=== PATIENT | male | born 1955 | race African-American/Black ===

== ENCOUNTER 2019-08-24 23:28 | Inpatient (IN) | payer OTHER ==
[~2019-08-24] VITALS: Ht 190.5 cm; Wt 129.8 kg
[2019-08-24] MEDS ORDERED: Solu-MEDROL 125mg Inj IVP ONE (23:30)
[2019-08-24] MEDS ORDERED: Ipratropium 0.02% Inh Soln 2.5ml UD HHN ONE (23:30)
[2019-08-24] MEDS ORDERED: Albuterol ud Inhalation HHN ONE (23:30)
--- NOTE | 2019-08-24 23:34 | Emergency Room Report ---
History of Present Illness General Chief Complaint: Dyspnea/Respdistress Source: Patient, Medical Record, EMS Present Illness HPI 63-year-old male with a history of high blood pressure, asthma/COPD who continues to smoke. He presents with chief complaint of shortness of breath. Onset this morning. Worsened tonight. Has coughing and wheezing. Coughing is productive of yellow sputum. He was just discharged from [facility] 2 weeks ago for COPD and pneumonia. EMS said he was wheezing and put him on breathing treatment and oxygen and brought him here. Patient denies any chest pain. Worse exertion. Worse with lying flat. Better with sitting up and rest. No nausea no vomiting. No diarrhea. Allergies: Coded Allergies: PENICILLINS (Unverified Allergy, Unknown, 08/24/19) Patient History Past Medical History: see triage record, old chart reviewed, DM, HTN, asthma, COPD Past Surgical History: other Pertinent Family History: none Social History: Reports: smoking Immunizations: other Reviewed Nursing Documentation: PMH: Agreed; PSxH: Agreed Review of Systems Eye: Denies: eye pain, blurred vision ENT: Denies: ear pain, nose congestion, throat swelling Respiratory: Reports: cough, shortness of breath, wheezing Cardiovascular: Denies: chest pain, palpitations Gastrointestinal: Denies: abdominal pain, diarrhea, nausea, vomiting Musculoskeletal: Denies: back pain, joint pain Skin: Denies: rash Neurological: Denies: headache, numbness Endocrine: Denies: increased thirst, increased urine Hematologic/Lymphatic: Denies: easy bruising All Other Systems: negative except mentioned in HPI Physical Exam Sp02 EP Interpretation: reviewed, abnormal General Appearance: well appearing, alert, moderate distress Head: normocephalic, atraumatic Eyes: bilateral eye PERRL, bilateral eye EOMI ENT: hearing grossly normal, normal pharynx Neck: full range of motion, supple, no meningismus Respiratory: chest non-tender, respiratory distress, accessory muscle use, wheezing Cardiovascular #1: regular rate, rhythm, no murmur Gastrointestinal: normal bowel sounds, non tender, no mass, no organomegaly, no bruit, non-distended Musculoskeletal: back normal, gait/station normal, normal range of motion Psychiatric: mood/affect normal Medical Decision Making Diagnostic Impression: Primary Impression: Status asthmaticus with COPD (chronic obstructive pulmonary disease) Additional Impressions: Cocaine abuse PCP (phencyclidine) abuse ER Course Patient presents with respiratory distress. Probably secondary to substance abuse. He said he smoked crack cocaine today. Initially I put him on BiPAP and was able to wean him off. He still wheezing but much more comfortable. Chest x-ray is unremarkable. No evidence of ACS, PE, dissection to name a few. Patient received nebulizer treatment, steroid and magnesium for his wheezing. Will admit versus transfer for further evaluation. Pt will be placed in Tele obsv here. I contacted Dr. Nickerson for admission. EKG Diagnostic Results Rate: normal Rhythm: NSR ST Segments: no acute changes Rhythm Strip Diag. Results EP Interpretation: yes Rate: 95 Rhythm: NSR, no PVC's, no ectopy Chest X-Ray Diagnostic Results Chest X-Ray Diagnostic Results : Chest X-Ray Ordered: Yes # of Views/Limited/Complete: 1 View Indication: Shortness of Breath EP Interpretation: Yes Interpretation: no consolidation, no effusion, no pneumothorax, no acute cardiopulmonary disease Impression: No acute disease Electronically Signed by: Zachariah Harmon MD Status: improved Disposition: PLACE IN OBSERVATION Condition: Serious Zachariah Harmon MD Aug 24, 2019 23:34
--- NOTE | 2019-08-24 23:45 | NUR ---
ED Nurse Note: Recieved pt DEBORAH from home, here with c/o sob with asthma, pt has ran out of nebulizer meds about a week ago, states inhaler not working, pt noted with sob at rest and on exertion, has mild headache at 5/10, no cp, denies fevers or any other discomforts, pt able to speak, not complete sentences due to sob, pt gowned and palced on cardiac monitoring, iv line palced and labs drawn, will resume care as ordered and closely monitor.
[2019-08-24 23:50] LABS: BASOPHILS % (AUTO) 3.3 % (0.0-2.0); EOSINOPHILS % (AUTO) 3.9 % (0.0-3.0); HEMATOCRIT 41.5 % (42.0-52.0); HEMOGLOBIN 13.7 G/DL (14.2-18.0); MEAN CORPUSCULAR VOLUME 100 FL (80-99); MONOCYTES % (AUTO) 9.5 % (1.0-10.0); NEUTROPHILS % (AUTO) 66.3 % (45.0-75.0); PLATELET COUNT 190 K/UL (150-450); RED BLOOD COUNT 4.15 M/UL (4.70-6.10); RED CELL DISTRIBUTION WIDTH 12.4 % (11.6-14.8); WHITE BLOOD COUNT 7.7 K/UL (4.8-10.8)
--- NOTE | 2019-08-25 | NUR ---
ED Nurse Note: Pt placed on BIPAP, O2 jtx=226%, will continue to closely monitor.
[2019-08-25 00:16] LABS: ANION GAP 11 mmol/L (5-15); BLOOD UREA NITROGEN 12 mg/dL (7-18); CARBON DIOXIDE 26 MMOL/L (21-32); CHLORIDE 105 MMOL/L (98-107); CREATININE 1.4 MG/DL (0.55-1.30); POTASSIUM 4.2 MMOL/L (3.5-5.1); SODIUM 142 MMOL/L (136-145)
[2019-08-25 00:29] LABS: ALANINE AMINOTRANSFERASE 44 U/L (12-78); ALBUMIN 3.5 G/DL (3.4-5.0); ALBUMIN/GLOBULIN RATIO 0.8 (1.0-2.7); ALKALINE PHOSPHATASE 94 U/L (46-116); ASPARTATE AMINO TRANSFERASE 30 U/L (15-37); BILIRUBIN,TOTAL 0.6 MG/DL (0.2-1.0); CREATINE KINASE 442 U/L (26-308)
[2019-08-25 01:00] VITALS: BP 143/89
[2019-08-25] MEDS ORDERED: Albuterol ud Inhalation HHN ONE (01:00)
[2019-08-25 01:13] LABS: APPEARANCE,URINE CLEAR; BILIRUBIN, URINE NEGATIVE (NEGATIVE); COLOR,URINE PALE YELLOW; GLUCOSE, URINE (UA) NEGATIVE (NEGATIVE); KETONES,URINE NEGATIVE (NEGATIVE); LEUKOCYTE ESTERASE ,URINE NEGATIVE (NEGATIVE); NITRITE,URINE NEGATIVE (NEGATIVE); PH,URINE 6 (4.5-8.0); PROTEIN,URINE NEGATIVE (NEGATIVE); UROBILINOGEN,URINE NORMAL MG/DL (0.0-1.0)
[2019-08-25 02:15] VITALS: BP 116/61
[2019-08-25] MEDS ORDERED: Acetaminophen 650 MG SUPP RECTAL PRN (02:30)
--- NOTE | 2019-08-25 03:11 | NUR ---
ED Nurse Note: report given to QAMAR Santana from Tele.
[2019-08-25] MEDS: Albuterol ud Inhalation HHN PRN (05:17)
[2019-08-25] MEDS ORDERED: Albuterol ud Inhalation HHN SCH (07:00)
--- NOTE | 2019-08-25 07:34 | NUR ---
NURSE NOTES: Received report from Mahesh/RN, Patient is awake and alert, A/O x4. Breathing unlabored and even, no acute distress/SOB noted. Able to make needs known. IV site patent, no bleeding or infiltration noted. Sera pain at this time. Encouraged to use call light when needed. Bed in low position and locked, Bed alarm engaged, Side-rails up x2. Call light within reach. Will continue plan of care.
[2019-08-25 08:00] VITALS: BP 126/81
[2019-08-25] MEDS ORDERED: Morphine Sulfate 2mg/ml Inj(IV/IM USE ONLY) IVP PRN (09:45)
[2019-08-25] MEDS ORDERED: Promethazine/Codeine 5ml UD ORAL PRN (09:45)
[2019-08-25] MEDS ORDERED: Nitroglycerin Subl 0.4mg tab SL PRN (09:45)
[2019-08-25] MEDS ORDERED: LORazepam Inj 2mg/ml 1ml IV PRN (09:45)
[2019-08-25] MEDS: Theophylline ER 100mg ORAL SCH ×3 (11:00→21:00)
[2019-08-25] MEDS: Solu-MEDROL 125mg Inj IV SCH ×3 (11:08→22:02)
[2019-08-25] MEDS: Albuterol/Ipratropium 3ml neb HHN PRN ×5 (11:10→23:09)
--- NOTE | 2019-08-25 11:15 | NUR ---
Social Work This Sw received notification regarding substance abuse. This Sw met with patient who remains alert/oriented x4, making his own decisions. Patient lives alone and has a his ex-girlfriend, Chayo Mari ([phone]) who is his payee, decision maker, as needed. Patient plans to discharge to home with Chayo to provide transportation, as needed. Patient admitted to using Cocaine for the past thirty years. This Sw discussed the health risks involved, while patient expressing understanding and stating "I will try to quit." Substance abuse resources provided. Patient stating he plans to follow up with a Psychiatrist, due to his history of PTSD (Post Traumatic Stress Disorder). Patient was taking medication, but will need to reinstate. This Sw also provided a list of Mental Health clinics. Emotional support provided to patient, while patient appears to be coping overall, does not verbalize any depression, anxiety or suicidal ideations. Patient remains independent overall with ADLs, ambulation and does not require any DME at this time.
--- NOTE | 2019-08-25 11:40 | NUR ---
RESPIRATORY NOTE: Breathing Tx Duoneb prn given for SOB. Pt has Bipap Noc/ prn order per Dr. Denis. Pt wants to be on Bipap due to SOB. The room doesn't red outlet. Asking QAMAR Enriquez and AAKASH Albarran to move pt to different room with the red outlet. No room available yet. Placed pt on Bipap with the current settings: 12/5- 30% FiO2. Foam tapes applied on cheeks, chin and nose bridge to prevent redness. No redness or skin breakdown noted. Alarms are set and audible, ambu bag is at bedside. Will continue to monitor pt in the mean time, and follow up about the room/ Addendum: 08/25/19 at 1223 by Jada N Weiss RT QAMAR Enriquez. Addendum: 08/25/19 at 1346 by Martintran N Weiss RT EtCO2 monitor is on with Bipap, PCO2 is low 20mmHg. Alarm for EtCO2 is set at 35-45mmHg.
--- NOTE | 2019-08-25 11:51 | Consultation ---
History of Present Illness General Date patient seen: Aug 25, 2019 Chief Complaint: Dyspnea/Respdistress Present Illness HPI 63-year-old male with a history of HTN, DM , asthma/COPD presented to ER with chief complaint of shortness of breath, coughing and wheezing. Coughing is productive of yellow sputum. He was just discharged from [facility] weeks ago for COPD and pneumonia. He is admitted for further treatment. Allergies: Coded Allergies: PENICILLINS (Unverified Allergy, Unknown, 08/24/19) Patient History Healthcare decision maker Resuscitation status Full Code Advanced Directive on File Past Medical/Surgical History Past Medical/Surgical History: (1) COPD (chronic obstructive pulmonary disease) (2) Nicotine addiction (3) Active smoker (4) Cocaine abuse (5) PCP (phencyclidine) abuse Review of Systems All Other Systems: negative except mentioned in HPI Physical Exam General Appearance: WD/WN Lines, tubes and drains: peripheral HEENT: normocephalic Neck: non-tender, normal alignment Respiratory/Chest: chest wall non-tender, lungs clear Cardiovascular/Chest: normal peripheral pulses, normal rate Abdomen: normal bowel sounds, non tender Genitourinary/Rectal: normal genital exam Neurologic: galley cook II-XII grossly normal Last 24 Hour Vital Signs Date Time Temp Pulse Resp B/P (MAP) Pulse Ox O2 Delivery O2 Flow Rate FiO2 08/25/19 11:20 95 22 99 Nasal Cannula 2.0 96 24 95 08/25/19 09:00 Nasal Cannula 2.0 08/25/19 08:00 94 08/25/19 08:00 97.9 94 18 126/81 (96) 96 08/25/19 06:53 80 19 100 Nasal Cannula 2.0 92 21 100 08/25/19 05:18 94 20 99 Nasal Cannula 2.0 90 20 98 08/25/19 04:19 Nasal Cannula 2.0 08/25/19 04:04 96 08/25/19 03:40 98.4 81 18 119/64 100 Room Air 08/25/19 03:30 2.0 28 08/25/19 02:15 98.6 90 18 116/61 99 Room Air 6.0 21 08/25/19 01:00 98.6 88 18 143/89 99 Room Air 6.0 21 08/25/19 00:58 96 18 99 Room Air 08/25/19 00:25 6.0 30 08/24/19 23:45 93 14 6.0 30 08/24/19 23:45 93 23 100 Facial 30 93 14 100 Bi-Pap 30 08/24/19 23:44 93 23 100 Bi-Pap 30 08/24/19 23:29 98.6 100 26 115/91 (99) 100 Nasal Cannula 6.0 Intake and Output 08/24/19 08/25/19 19:00 07:00 Output Total 300 ml Balance -300 ml Output Urine Total 300 ml # Voids 1 Laboratory Tests Test 08/24/19 23:30 08/25/19 01:00 White Blood Count 7.7 K/UL (4.8-10.8) Red Blood Count 4.15 M/UL (4.70-6.10) L Hemoglobin 13.7 G/DL (14.2-18.0) L Hematocrit 41.5 % (42.0-52.0) L Mean Corpuscular Volume 100 FL (80-99) H Mean Corpuscular Hemoglobin 32.9 PG (27.0-31.0) H Mean Corpuscular Hemoglobin Concent 32.9 G/DL (32.0-36.0) Red Cell Distribution Width 12.4 % (11.6-14.8) Platelet Count 190 K/UL (150-450) Mean Platelet Volume 6.7 FL (6.5-10.1) Neutrophils (%) (Auto) 66.3 % (45.0-75.0) Lymphocytes (%) (Auto) 17.0 % (20.0-45.0) L Monocytes (%) (Auto) 9.5 % (1.0-10.0) Eosinophils (%) (Auto) 3.9 % (0.0-3.0) H Basophils (%) (Auto) 3.3 % (0.0-2.0) H Sodium Level 142 MMOL/L (136-145) Potassium Level 4.2 MMOL/L (3.5-5.1) Chloride Level 105 MMOL/L (98-107) Carbon Dioxide Level 26 MMOL/L (21-32) Anion Gap 11 mmol/L (5-15) Blood Urea Nitrogen 12 mg/dL (7-18) Creatinine 1.4 MG/DL (0.55-1.30) H Estimat Glomerular Filtration Rate > 60 mL/min (>60) Glucose Level 113 MG/DL (74-106) H Calcium Level 9.0 MG/DL (8.5-10.1) Total Bilirubin 0.6 MG/DL (0.2-1.0) Aspartate Amino Transf (AST/SGOT) 30 U/L (15-37) Alanine Aminotransferase (ALT/SGPT) 44 U/L (12-78) Alkaline Phosphatase 94 U/L (46-116) Total Creatine Kinase 442 U/L (26-308) H Creatine Kinase MB 5.0 NG/ML (0.0-3.6) H Creatine Kinase MB Relative Index 1.1 Troponin I 0.000 ng/mL (0.000-0.056) Pro-B-Type Natriuretic Peptide 153 pg/mL (0-125) H Total Protein 8.0 G/DL (6.4-8.2) Albumin 3.5 G/DL (3.4-5.0) Globulin 4.5 g/dL Albumin/Globulin Ratio 0.8 (1.0-2.7) L Urine Color Pale yellow Urine Appearance Clear Urine pH 6 (4.5-8.0) Urine Specific Mandan 1.015 (1.005-1.035) Urine Protein Negative (NEGATIVE) Urine Glucose (UA) Negative (NEGATIVE) Urine Ketones Negative (NEGATIVE) Urine Blood Negative (NEGATIVE) Urine Nitrite Negative (NEGATIVE) Urine Bilirubin Negative (NEGATIVE) Urine Urobilinogen Normal MG/DL (0.0-1.0) Urine Leukocyte Esterase Negative (NEGATIVE) Urine Opiates Screen Negative (NEGATIVE) Urine Barbiturates Screen Negative (NEGATIVE) Phencyclidine (PCP) Screen Positive (NEGATIVE) H Urine Amphetamines Screen Negative (NEGATIVE) Urine Benzodiazepines Screen Negative (NEGATIVE) Urine Cocaine Screen Positive (NEGATIVE) H Urine Marijuana (THC) Screen Negative (NEGATIVE) Height (Feet): 6 Height (Inches): 3.00 Weight (Pounds): 300 Medications Current Medications Medications (Trade) Dose Ordered Sig/Norbert Route PRN Reason Start Time Stop Time Status Last Admin Dose Admin Albuterol Sulfate (Proventil) 2.5 mg Q4HR PRN HHN wheezing 08/25/19 02:30 08/30/19 02:29 08/25/19 05:17 Albuterol/ Ipratropium (Albuterol/ Ipratropium) 3 ml Q4H PRN HHN dyspnea 08/25/19 09:45 08/30/19 09:44 08/25/19 11:10 Dextrose (Dextrose 50%) 25 ml Q30M PRN IV Hypoglycemia 08/25/19 09:45 09/24/19 09:44 Dextrose (Dextrose 50%) 50 ml Q30M PRN IV Hypoglycemia 08/25/19 09:45 09/24/19 09:44 Heparin Sodium (Porcine) (Heparin 5000 units/ml) 5,000 units EVERY 12 HOURS SUBQ 08/25/19 21:00 09/24/19 20:59 Lorazepam (Ativan 2mg/ml 1ml) 0.5 mg Q4H PRN IV For Anxiety 08/25/19 09:45 09/01/19 09:44 Methylprednisolone Sodium Succinate (Solu-MEDROL) 60 mg Q6H IV 08/25/19 10:00 09/24/19 09:59 08/25/19 11:08 Morphine Sulfate (Morphine Sulfate) 2 mg Q4H PRN IVP severe pain 7-10 08/25/19 09:45 09/01/19 09:44 Nitroglycerin (Ntg) 0.4 mg Q5M X 3 DOSES PRN SL Prn Chest Pain 08/25/19 09:45 09/24/19 09:44 Ondansetron HCl (Zofran) 4 mg Q6H PRN IVP Nausea & Vomiting 08/25/19 09:45 09/24/19 09:44 Promethazine HCl/ Codeine (Phenergan with Codeine) 5 ml Q6H PRN ORAL cough 08/25/19 09:45 09/24/19 09:44 Temazepam (Restoril) 15 mg HSPRN PRN ORAL Insomnia 08/25/19 09:45 09/01/19 09:44 Theophylline (Sudhir-Dur) 100 mg EVERY 12 HOURS ORAL 08/25/19 10:00 09/24/19 09:59 Assessment/Plan Problem List: (1) Acute bronchitis ICD Codes: J20.9 - Acute bronchitis, unspecified SNOMED: 05427587 (2) COPD (chronic obstructive pulmonary disease) ICD Codes: J44.9 - Chronic obstructive pulmonary disease, unspecified SNOMED: 27374782 (3) Nicotine addiction ICD Codes: F17.200 - Nicotine dependence, unspecified, uncomplicated SNOMED: 21189298 (4) Active smoker ICD Codes: F17.200 - Nicotine dependence, unspecified, uncomplicated SNOMED: 59491442 (5) PCP (phencyclidine) abuse ICD Codes: F16.10 - Hallucinogen abuse, uncomplicated SNOMED: 2200505 (6) Cocaine abuse ICD Codes: F14.10 - Cocaine abuse, uncomplicated SNOMED: 32116267, 808687170 Assessment/Plan: check sputum iv abx iv steroids check electrolytes respiratory treatment. Jayro Denis MD Aug 25, 2019 11:51
[2019-08-25 12:00] VITALS: BP 143/90
--- NOTE | 2019-08-25 12:08 | Diagnostic Imaging Report ---
Indication: Shortness of breath Technique: One view of the chest Comparison: 09/26/2010 Findings: The heart is upper limits normal in size. The lungs and pleural spaces are clear. There is no significant interim change Impression: Negative
--- NOTE | 2019-08-25 13:26 | NUR ---
CASE MANAGEMENT:REVIEW 63 YR OLD MALE BIBA FROM HOME CC; SOB AND WHEEZING PMH: ASTHMA SI: COPD. ASTHMA. 98.6 100 26 100% ON 6L/NC URINE(+) PCP AND COCAINE CR+1.4 TCK+442 CKMB+5.0 TROPONIN(-) IS: BIPAP DUONEB HHN IV SOLUMEDROL IV MAG SULFATE 1L NS BOLUS CHEST X RAY : TO TELEMETRY
[2019-08-25] MEDS: Aztreonam Inj 1 GM in D5W 55 ML IVPB SCH ×2 (13:53→22:02)
--- NOTE | 2019-08-25 14:05 | NUR ---
*-* INSURANCE *-* ALL AVAILABLE CLINICALS AND REVIEWS HAVE BEENF AXED TO: KAROLYN DELANEY; EDDIE P- REP WOULD NOT RELEASE PH#...... P- [phone]...MAIN LINE TO DEPT F- [phone]...REVIEW/CLINICAL.......
--- NOTE | 2019-08-25 15:19 | NUR ---
RESPIRATORY NOTE: Pt was transferred to different room that has the red outlet. Breathing TX Duoneb prn given per pt request. Placed pt on Bipap due to SOB with EtCO2 monitor at bedside. Foam tapes applied on cheeks, chin, and nose bridge to prevent redness. Ambu bag is at bedside, Bipap is plugged into the red outlet, alarms are set and audible. RN Jolene made aware. Will continue to monitor pt.
[2019-08-25 16:00] VITALS: BP 130/81
[2019-08-25] MEDS: Azithromycin 500 MG in D5W 275 ML IV SCH (16:36)
[2019-08-25 21:00] VITALS: BP 140/77
[2019-08-25] MEDS: Heparin 5000 units/ml inj SUBQ SCH (22:06)
--- NOTE | 2019-08-25 23:15 | NUR ---
HAND-OFF: Report given to Lucy/RN, Patient in stable condition. Endorsed plan of care.
--- NOTE | 2019-08-25 23:59 | NUR ---
NURSE NOTES: Received pt from QAMAR Fernández. Pt awake, alert, and requesting to be off of BIPAP. Bed in lowest position. Call light within reach. Will continue to monitor.
[2019-08-26] VITALS: BP 149/88
[2019-08-26] MEDS: Albuterol/Ipratropium 3ml neb HHN PRN ×6 (02:54→22:36)
[2019-08-26] MEDS: Solu-MEDROL 125mg Inj IV SCH ×3 (03:21→16:09)
[2019-08-26 04:00] VITALS: BP 150/88
[2019-08-26] MEDS: Aztreonam Inj 1 GM in D5W 55 ML IVPB SCH ×2 (05:58→14:50)
--- NOTE | 2019-08-26 07:19 | NUR ---
RESPIRATORY NOTE: received pt on bipap and requested for PRN breathing tx. pt asks to be on bipap post tx. asked if he wants scheduled breathing tx's but requested to keep as needed. RN aware and notified. pt refused foam tape with bipap, but no visible skin tears or redness around facial area. will cont to monitor.
--- NOTE | 2019-08-26 07:30 | NUR ---
NURSE NOTES: Nurse report given by QAMAR Ayala. Pateint's awake in bed and receiving breathing treatment. AO x 4, denies pain, no s/s of distress, complains of SOB so patient's receiving Duoneb treatment at this moment. Bed low and locked, call light within reach, IV site is patent and asymptomatic. Will continue to monitor closely.
[2019-08-26 07:33] LABS: HEMATOCRIT 40.3 % (42.0-52.0); HEMOGLOBIN 12.9 G/DL (14.2-18.0); MEAN CORPUSCULAR VOLUME 103 FL (80-99); PLATELET COUNT 219 K/UL (150-450); RED BLOOD COUNT 3.94 M/UL (4.70-6.10); RED CELL DISTRIBUTION WIDTH 12.4 % (11.6-14.8); WHITE BLOOD COUNT 14.1 K/UL (4.8-10.8)
--- NOTE | 2019-08-26 07:33 | NUR ---
HAND-OFF: Report given to QAMAR Man. Pt stable.
[2019-08-26 07:44] LABS: ANION GAP 7 mmol/L (5-15); BLOOD UREA NITROGEN 23 mg/dL (7-18); CALCIUM 9.4 MG/DL (8.5-10.1); CARBON DIOXIDE 27 MMOL/L (21-32); CHLORIDE 103 MMOL/L (98-107); CREATININE 1.6 MG/DL (0.55-1.30); POTASSIUM 5.5 MMOL/L (3.5-5.1); SODIUM 137 MMOL/L (136-145)
[2019-08-26 08:00] VITALS: BP 131/76
[2019-08-26] MEDS: Theophylline ER 100mg ORAL SCH ×4 (08:40→21:00)
[2019-08-26] MEDS: Heparin 5000 units/ml inj SUBQ SCH ×2 (08:41→21:20)
--- NOTE | 2019-08-26 08:58 | General Progress Note ---
Assessment/Plan Problem List: (1) Asthma ICD Codes: J45.909 - Unspecified asthma, uncomplicated SNOMED: 763605791 (2) SOB (shortness of breath) ICD Codes: R06.02 - Shortness of breath SNOMED: 235469715 (3) CVA (cerebral vascular accident) ICD Codes: I63.9 - Cerebral infarction, unspecified SNOMED: 630865807 (4) HTN (hypertension) ICD Codes: I10 - Essential (primary) hypertension SNOMED: 56402937 (5) COPD (chronic obstructive pulmonary disease) ICD Codes: J44.9 - Chronic obstructive pulmonary disease, unspecified SNOMED: 84498521 (6) Cocaine abuse ICD Codes: F14.10 - Cocaine abuse, uncomplicated SNOMED: 15884833, 284795370 Status: stable, progressing Assessment/Plan: o2 pulm tx bp pain control cbc bmp am dc plan Subjective Constitutional: Reports: weakness Allergies: Coded Allergies: PENICILLINS (Unverified Allergy, Unknown, 08/24/19) All Systems: reviewed and negative except above Subjective o2nc calm in bed Objective Last 24 Hour Vital Signs Date Time Temp Pulse Resp B/P (MAP) Pulse Ox O2 Delivery O2 Flow Rate FiO2 08/26/19 07:18 89 24 99 Nasal Cannula 2.0 28 87 25 97 08/26/19 07:17 97 Bi-Pap 30 08/26/19 05:12 87 16 98 Facial 30 08/26/19 04:00 89 08/26/19 04:00 97.3 82 24 150/88 (108) 98 08/26/19 02:54 98 20 99 Bi-Pap 30 95 22 98 08/26/19 02:54 95 23 98 Facial 30 08/26/19 01:31 91 20 97 Facial 30 08/26/19 00:20 98 22 98 Facial 30 08/26/19 00:00 85 08/26/19 00:00 97.3 88 27 149/88 (108) 93 08/25/19 23:09 96 20 99 Nasal Cannula 2.0 28 94 22 94 08/25/19 21:27 85 15 97 Facial 30 08/25/19 21:00 Nasal Cannula 2.0 08/25/19 21:00 97.7 66 25 140/77 (98) 97 08/25/19 20:00 76 08/25/19 19:44 81 22 96 Facial 30 08/25/19 19:25 96 Nasal Cannula 2.0 28 08/25/19 19:21 87 24 99 Nasal Cannula 2.0 28 85 24 96 08/25/19 17:48 93 26 99 Nasal Cannula 2.0 28 92 28 96 08/25/19 17:30 92 29 97 Facial 30 08/25/19 16:00 98.0 88 18 130/81 (97) 98 08/25/19 16:00 84 08/25/19 15:19 97 28 96 Facial 30 87 24 97 Bi-Pap 30 08/25/19 12:40 90 23 94 08/25/19 12:00 88 08/25/19 12:00 98.1 88 20 143/90 (107) 99 08/25/19 11:40 97 27 99 Facial 30 08/25/19 11:20 95 22 99 Nasal Cannula 2.0 28 96 24 95 08/25/19 09:00 Nasal Cannula 2.0 Intake and Output 08/25/19 08/26/19 19:00 07:00 Intake Total 550 ml 550 ml Output Total 300 ml Balance 550 ml 250 ml Intake Oral 550 ml 550 ml Output Urine Total 300 ml # Voids 7 2 Laboratory Tests 08/26/19 06:19: White Blood Count 14.1#H, Red Blood Count 3.94L, Hemoglobin 12.9L, Hematocrit 40.3L, Mean Corpuscular Volume 103H, Mean Corpuscular Hemoglobin 32.7H, Mean Corpuscular Hemoglobin Concent 31.9L, Red Cell Distribution Width 12.4, Platelet Count 219, Mean Platelet Volume 6.8, Neutrophils (%) (Auto) , Lymphocytes (%) (Auto) , Monocytes (%) (Auto) , Eosinophils (%) (Auto) , Basophils (%) (Auto) , Neutrophils % (Manual) [Pending], Lymphocytes % (Manual) [Pending], Platelet Estimate [Pending], Platelet Morphology [Pending], Sodium Level 137, Potassium Level 5.5H, Chloride Level 103, Carbon Dioxide Level 27, Anion Gap 7, Blood Urea Nitrogen 23H, Creatinine 1.6H, Estimat Glomerular Filtration Rate 53.6, Glucose Level 141H, Calcium Level 9.4 Height (Feet): 6 Height (Inches): 3.00 Weight (Pounds): 300 General Appearance: lethargic EENT: normal ENT inspection Neck: normal alignment Cardiovascular: normal peripheral pulses, normal rate, regular rhythm Respiratory/Chest: chest wall non-tender, lungs clear, normal breath sounds Abdomen: normal bowel sounds, non tender, soft Extremities: normal inspection Edema: no edema noted Arm (L), no edema noted Arm (R), no edema noted Leg (L), no edema noted Leg (R), no edema noted Pedal (L), no edema noted Pedal (R), no edema noted Generalized Neurologic: responsive, motor weakness Skin: normal pigmentation, warm/dry Max Nickerson DO Aug 26, 2019 08:58
--- NOTE | 2019-08-26 10:41 | NUR ---
CASE MANAGEMENT:REVIEW 08/26/19 SI: COPD. ASTHMA COCAINE ABUSE 97.6 83 20 131/76 95% ON 2L/NC WBC+14.1 K+5.5 BUN+23 CR+1.6 IS: IV SOLUMEDROL 60MG Q6HRS IV AZITHROMYCIN Q24 IV AZACTAM Q8HRS MARNIE-DUR PO Q12 : TELEMETRY STATUS DCP: FROM HOME
--- NOTE | 2019-08-26 11:25 | NUR ---
*-* INSURANCE *-* ALL AVAILABLE CLINICALS AND REVIEWS HAVE BEEN FAXED TO: KAROLYN DELANEY; EDDIE P- REP WOULD NOT RELEASE PH#...... P- [phone]...MAIN LINE TO DEPT F- [phone]...REVIEW/CLINICAL.......
--- NOTE | 2019-08-26 11:54 | History and Physical Report ---
DATE OF ADMISSION: 08/25/2019 TIME SEEN: 3 p.m. CONSULTANTS: Jayro Denis M.D. CHIEF COMPLAINT: Shortness of breath, asthma exacerbation. BRIEF HISTORY: The patient is a 63-year-old male, who lives at home, presents with 5 hours increased shortness of breath yesterday, came to [facility], diagnosed with above. No chest pain. No nausea, vomiting, or diarrhea, diagnosed with asthma, COPD exacerbation, admitted to telemetry for further care. Currently, O2 NC, calm, slight wheeze bilaterally. No complaint. REVIEW OF SYSTEMS: No chest pain. Slight short of breath. No nausea, vomiting, or diarrhea. PAST MEDICAL HISTORY: Include hypertension, CVA, drug abuse, asthma, COPD. PAST SURGICAL HISTORY: Hemorrhoid. MEDICATIONS: Include heparin, azithromycin, aztreonam, methylprednisone, theophylline, albuterol, lorazepam, morphine, nitroglycerin, Zofran, temazepam, albuterol. ALLERGIES: Penicillin. SOCIAL HISTORY: Positive smoke, occasional alcohol. Positive cocaine, last time two days ago. PHYSICAL EXAMINATION: GENERAL: Calm in bed, oriented x3, slight short of breath. VITAL SIGNS: Temperature is 97, pulse 90, respiratory rate 23, blood pressure 126/81. CARDIOVASCULAR: No murmur. LUNGS: Poor air exchange. Slight wheeze bilaterally. ABDOMEN: Bowel sounds positive. Nontender. Nondistended. EXTREMITIES: No cyanosis or edema. NEUROLOGIC: The patient moves all extremities, slightly weak. LABORATORY AND DIAGNOSTIC DATA: Labs at this time show hemoglobin and hematocrit 13/41 otherwise CBC is normal. BMP shows creatinine 1.4, glucose 113. CK 442. MB is 5. Troponin 0.00. BNP is 153. Urinalysis is negative. Urine tox positive for cocaine and phencyclidine. ASSESSMENT: 1. Shortness of breath. 2. Asthma. 3. COPD. 4. Drug abuse. 5. Hypertension. 6. CVA. PLAN: 1. O2 saturation, pulmonary treatment. 2. Antibiotics per Infectious Diseases. 3. Taper off steroids. 4. Blood pressure, pain control, detox. 5. CBC and BMP in the morning. Max Nickerson D.O. DR: Blake JOB#: [id number] CC:
[2019-08-26 12:00] VITALS: BP 124/61
[2019-08-26 16:00] VITALS: BP 127/73
[2019-08-26] MEDS: Azithromycin 500 MG in D5W 275 ML IV SCH (16:10)
[2019-08-26] MEDS: Albuterol ud Inhalation HHN PRN (19:19)
--- NOTE | 2019-08-26 19:41 | NUR ---
HAND-OFF: Report given to QAMAR Ayala. Patient's stable. Plan of care endorsed.
--- NOTE | 2019-08-26 19:45 | NUR ---
NURSE NOTES: Received pt from QAMAR Man. Pt awake, alert, and receiving a breathing treatment. Bed in lowest position. Call light within reach. Will continue to monitor.
[2019-08-26 20:00] VITALS: BP 127/92
--- NOTE | 2019-08-26 22:00 | NUR ---
NURSE NOTES: Received patient in bed, awake, alert, oriented x4, able to make his needs known, transfer from telemetry floor, BiPAP at night PRN, IV site is clean dry and intact. Oriented to the room, call light is within reach, bed is low, locked, alarm is on, patient is ambulatory with steady gate. Belongings list reviewed, items are accounted for. Will continue to monitor for safety and comfort.
--- NOTE | 2019-08-26 22:22 | NUR ---
TRANSFER TO FLOOR: Patient transferred to 401, per MD. Report given to RN. Belongings and medications given to pt. Family and or S/O informed of transfer.
[2019-08-26] MEDS ORDERED: Nitroglycerin Subl 0.4mg tab SL PRN (22:30)
[2019-08-27] VITALS: BP 125/70
[2019-08-27] MEDS ORDERED: LORazepam Inj 2mg/ml 1ml IV PRN (01:45)
[2019-08-27] MEDS: Albuterol/Ipratropium 3ml neb HHN PRN ×6 (03:35→23:17)
[2019-08-27] MEDS ORDERED: Promethazine/Codeine 5ml UD ORAL PRN (03:45)
[2019-08-27 04:00] VITALS: BP 147/78
[2019-08-27] MEDS: Solu-MEDROL 125mg Inj IV SCH ×4 (04:03→21:11)
[2019-08-27] MEDS: Aztreonam Inj 1 GM in D5W 55 ML IVPB SCH ×3 (05:13→21:12)
--- NOTE | 2019-08-27 07:30 | NUR ---
HAND-OFF: Report given to Bela FOOTE.
--- NOTE | 2019-08-27 07:47 | NUR ---
NURSE NOTES: Received patient in bed, awake, alert, oriented x4, on going BiPAP HL is clean dry and intact.,call light is within reach, bed is low, locked, alarm is on, on fall precaution Will continue to monitor for safety and comfort. renea vasquez
[2019-08-27 08:00] VITALS: BP 144/72
[2019-08-27] MEDS: Theophylline ER 100mg ORAL SCH ×2 (08:18→21:00)
[2019-08-27] MEDS: Heparin 5000 units/ml inj SUBQ SCH ×2 (08:20→21:13)
[2019-08-27 08:22] LABS: HEMATOCRIT 39.5 % (42.0-52.0); HEMOGLOBIN 12.5 G/DL (14.2-18.0); MEAN CORPUSCULAR VOLUME 102 FL (80-99); PLATELET COUNT 219 K/UL (150-450); RED BLOOD COUNT 3.86 M/UL (4.70-6.10); RED CELL DISTRIBUTION WIDTH 12.6 % (11.6-14.8); WHITE BLOOD COUNT 18.1 K/UL (4.8-10.8)
[2019-08-27 08:40] LABS: ANION GAP 9 mmol/L (5-15); BLOOD UREA NITROGEN 25 mg/dL (7-18); CALCIUM 8.9 MG/DL (8.5-10.1); CARBON DIOXIDE 29 MMOL/L (21-32); CHLORIDE 103 MMOL/L (98-107); CREATININE 1.5 MG/DL (0.55-1.30); POTASSIUM 4.7 MMOL/L (3.5-5.1); SODIUM 141 MMOL/L (136-145)
[2019-08-27 12:13] VITALS: BP 128/78
--- NOTE | 2019-08-27 14:56 | General Progress Note ---
Assessment/Plan Problem List: (1) Asthma ICD Codes: J45.909 - Unspecified asthma, uncomplicated SNOMED: 837010110 (2) SOB (shortness of breath) ICD Codes: R06.02 - Shortness of breath SNOMED: 242904329 (3) CVA (cerebral vascular accident) ICD Codes: I63.9 - Cerebral infarction, unspecified SNOMED: 271254743 (4) HTN (hypertension) ICD Codes: I10 - Essential (primary) hypertension SNOMED: 85691429 (5) COPD (chronic obstructive pulmonary disease) ICD Codes: J44.9 - Chronic obstructive pulmonary disease, unspecified SNOMED: 22265730 (6) Cocaine abuse ICD Codes: F14.10 - Cocaine abuse, uncomplicated SNOMED: 54816076, 103724715 Status: stable, progressing Assessment/Plan: o2 pulm tx bp pain control cbc bmp am dc plan Subjective Constitutional: Reports: weakness Respiratory: Reports: shortness of breath Allergies: Coded Allergies: PENICILLINS (Unverified Allergy, Unknown, 08/24/19) All Systems: reviewed and negative except above Subjective o2nc calm in bed Objective Last 24 Hour Vital Signs Date Time Temp Pulse Resp B/P (MAP) Pulse Ox O2 Delivery O2 Flow Rate FiO2 08/27/19 12:28 86 18 99 Nasal Cannula 2.0 28 84 16 95 08/27/19 12:13 97.3 89 19 128/78 (95) 97 08/27/19 12:08 86 15 97 28 08/27/19 08:49 88 19 97 Facial 30 08/27/19 08:26 96 Nasal Cannula 2.0 28 08/27/19 08:02 Nasal Cannula 2.0 08/27/19 08:00 98.6 75 19 144/72 (96) 97 08/27/19 04:12 90 22 98 Facial 30 08/27/19 04:00 97.5 78 22 147/78 (101) 97 78 08/27/19 03:37 85 20 98 Nasal Cannula 2.0 28 86 20 94 08/27/19 00:00 97.8 100 22 125/70 (88) 97 100 08/26/19 22:56 92 22 99 Facial 30 08/26/19 22:36 88 22 98 Nasal Cannula 2.0 28 96 24 94 08/26/19 21:00 Nasal Cannula 2.0 08/26/19 20:00 97.4 81 20 127/92 (104) 100 08/26/19 19:42 88 21 99 Facial 30 08/26/19 19:24 86 22 96 Nasal Cannula 2.0 28 88 24 96 08/26/19 19:23 96 Nasal Cannula 2.0 28 08/26/19 19:23 88 24 96 Nasal Cannula 28 08/26/19 16:00 97.0 87 22 127/73 (91) 97 08/26/19 16:00 86 08/26/19 15:29 81 24 100 Nasal Cannula 2.0 28 87 24 94 Intake and Output 08/26/19 08/27/19 19:00 07:00 Intake Total 860 ml Output Total 1200 ml Balance -340 ml Intake Oral 860 ml Output Urine Total 1200 ml # Voids 2 Laboratory Tests 08/27/19 06:50: White Blood Count 18.1H, Red Blood Count 3.86L, Hemoglobin 12.5L, Hematocrit 39.5L, Mean Corpuscular Volume 102H, Mean Corpuscular Hemoglobin 32.4H, Mean Corpuscular Hemoglobin Concent 31.7L, Red Cell Distribution Width 12.6, Platelet Count 219, Mean Platelet Volume 6.9, Neutrophils (%) (Auto) , Lymphocytes (%) (Auto) , Monocytes (%) (Auto) , Eosinophils (%) (Auto) , Basophils (%) (Auto) , Differential Total Cells Counted 100, Neutrophils % ( Manual) 92H, Lymphocytes % (Manual) 2L, Monocytes % (Manual) 6, Eosinophils % ( Manual) 0, Basophils % (Manual) 0, Band Neutrophils 0, Platelet Estimate Adequate, Platelet Morphology Normal, Red Blood Cell Morphology , Anisocytosis 1 +, Macrocytosis 1+, Sodium Level 141, Potassium Level 4.7, Chloride Level 103, Carbon Dioxide Level 29, Anion Gap 9, Blood Urea Nitrogen 25H, Creatinine 1.5H, Estimat Glomerular Filtration Rate 57.7, Glucose Level 113H, Calcium Level 8.9 Height (Feet): 6 Height (Inches): 3.00 Weight (Pounds): 300 General Appearance: lethargic EENT: normal ENT inspection Neck: normal alignment Cardiovascular: normal peripheral pulses, normal rate, regular rhythm Respiratory/Chest: chest wall non-tender, lungs clear, normal breath sounds Abdomen: normal bowel sounds, non tender, soft Extremities: normal inspection Edema: no edema noted Arm (L), no edema noted Arm (R), no edema noted Leg (L), no edema noted Leg (R), no edema noted Pedal (L), no edema noted Pedal (R), no edema noted Generalized Neurologic: responsive, motor weakness Skin: normal pigmentation, warm/dry Max Nickerson DO Aug 27, 2019 14:56
[2019-08-27] MEDS: Azithromycin 500 MG in D5W 275 ML IV SCH (15:10)
[2019-08-27 16:00] VITALS: BP 133/66
--- NOTE | 2019-08-27 19:03 | NUR ---
HAND-OFF: Report given to QAMAR HERBERT RESTING COMFORTABLY IN BED,NO SIGNIFICANT CHANGES QAMAR Cortes.
--- NOTE | 2019-08-27 19:30 | NUR ---
NURSE NOTES: Received patient awake,alert,verbal,sitting in bed.with the BIPAP on.
[2019-08-27 20:15] VITALS: BP 153/74
[2019-08-28 00:15] VITALS: BP 143/75
[2019-08-28] MEDS: Albuterol ud Inhalation HHN PRN ×5 (03:45→22:48)
[2019-08-28 04:00] VITALS: BP 129/85
[2019-08-28] MEDS: Solu-MEDROL 125mg Inj IV SCH ×4 (04:18→21:03)
[2019-08-28] MEDS: Aztreonam Inj 1 GM in D5W 55 ML IVPB SCH ×4 (05:02→21:03)
--- NOTE | 2019-08-28 07:00 | NUR ---
RESPIRATORY NOTES: Received patient on room air. Gave patient breathing treatment via mouth piece. Placed patient on BIPAP 12/5 PS +7 FIO2 30% after treatment. Patient on facial mask with tape of forehead. No skin break down noted. Patient tolerating well. Will continue to monitor.
[2019-08-28] MEDS: Albuterol/Ipratropium 3ml neb HHN PRN ×5 (07:15→22:48)
--- NOTE | 2019-08-28 07:16 | NUR ---
HAND-OFF: Report given to Hayley Sullivan RN.
--- NOTE | 2019-08-28 07:17 | NUR ---
NURSE NOTES: Received patient on bed awake. No SOB or cardiac distress. IV site intact and patent, no s/s of infiltration. Will continue plan of care.
--- NOTE | 2019-08-28 07:46 | General Progress Note ---
Assessment/Plan Problem List: (1) Asthma ICD Codes: J45.909 - Unspecified asthma, uncomplicated SNOMED: 672329700 (2) SOB (shortness of breath) ICD Codes: R06.02 - Shortness of breath SNOMED: 007352199 (3) CVA (cerebral vascular accident) ICD Codes: I63.9 - Cerebral infarction, unspecified SNOMED: 859100279 (4) HTN (hypertension) ICD Codes: I10 - Essential (primary) hypertension SNOMED: 88791566 (5) COPD (chronic obstructive pulmonary disease) ICD Codes: J44.9 - Chronic obstructive pulmonary disease, unspecified SNOMED: 79269975 (6) Cocaine abuse ICD Codes: F14.10 - Cocaine abuse, uncomplicated SNOMED: 64795719, 654069040 Status: stable, progressing Assessment/Plan: o2 pulm tx bp pain control cbc bmp am dc plan Subjective Constitutional: Reports: weakness Respiratory: Reports: shortness of breath Allergies: Coded Allergies: PENICILLINS (Unverified Allergy, Unknown, 08/24/19) All Systems: reviewed and negative except above Subjective o2nc calm in bed Objective Last 24 Hour Vital Signs Date Time Temp Pulse Resp B/P (MAP) Pulse Ox O2 Delivery O2 Flow Rate FiO2 08/28/19 07:16 97 Nasal Cannula 2.0 28 08/28/19 07:15 78 18 96 Room Air 21 08/28/19 05:23 90 15 98 Facial 30 08/28/19 04:00 98.2 88 22 129/85 (100) 95 08/28/19 03:45 93 16 93 Facial 30 94 14 97 Bi-Pap 30 08/28/19 00:15 98.2 100 20 143/75 (97) 96 08/28/19 00:08 99 24 100 Facial 30 08/27/19 23:37 102 21 100 Nasal Cannula 2.0 28 101 20 96 08/27/19 20:24 Nasal Cannula 2.0 08/27/19 20:20 101 24 100 Facial 30 08/27/19 20:15 98.2 104 22 153/74 (100) 95 08/27/19 19:49 109 22 100 Nasal Cannula 2.0 28 99 24 97 08/27/19 19:29 97 Nasal Cannula 2.0 28 08/27/19 16:00 97.6 83 18 133/66 (88) 97 08/27/19 15:38 87 21 98 Facial 30 08/27/19 15:35 87 21 99 Nasal Cannula 2.0 28 90 20 97 08/27/19 12:28 86 18 99 Nasal Cannula 2.0 28 84 16 95 08/27/19 12:13 97.3 89 19 128/78 (95) 97 08/27/19 12:08 86 15 97 28 08/27/19 08:49 88 19 97 Facial 30 08/27/19 08:26 96 Nasal Cannula 2.0 28 08/27/19 08:02 Nasal Cannula 2.0 08/27/19 08:00 98.6 75 19 144/72 (96) 97 Intake and Output 08/27/19 08/28/19 19:00 07:00 Intake Total 330 ml 970 ml Output Total 1400 ml 1450 ml Balance -1070 ml -480 ml Intake Oral 860 ml IV Total 330 ml 110 ml Output Urine Total 1400 ml 1450 ml # Voids 2 2 Laboratory Tests 08/28/19 06:00: White Blood Count [Pending], Red Blood Count [Pending], Hemoglobin [Pending], Hematocrit [Pending], Mean Corpuscular Volume [Pending], Mean Corpuscular Hemoglobin [Pending], Mean Corpuscular Hemoglobin Concent [Pending], Red Cell Distribution Width [Pending], Platelet Count [Pending], Mean Platelet Volume [ Pending], Neutrophils (%) (Auto) [Pending], Lymphocytes (%) (Auto) [Pending], Monocytes (%) (Auto) [Pending], Eosinophils (%) (Auto) [Pending], Basophils (%) (Auto) [Pending], Sodium Level [Pending], Potassium Level [Pending], Chloride Level [Pending], Carbon Dioxide Level [Pending], Blood Urea Nitrogen [Pending], Creatinine [Pending], Estimat Glomerular Filtration Rate [Pending], Glucose Level [Pending], Calcium Level [Pending] Height (Feet): 6 Height (Inches): 3.00 Weight (Pounds): 300 General Appearance: lethargic EENT: normal ENT inspection Neck: normal alignment Cardiovascular: normal peripheral pulses, normal rate, regular rhythm Respiratory/Chest: chest wall non-tender, lungs clear, normal breath sounds Abdomen: normal bowel sounds, non tender, soft Extremities: normal inspection Edema: no edema noted Arm (L), no edema noted Arm (R), no edema noted Leg (L), no edema noted Leg (R), no edema noted Pedal (L), no edema noted Pedal (R), no edema noted Generalized Neurologic: motor weakness Skin: normal pigmentation, warm/dry Max Nickerson DO Aug 28, 2019 07:46
[2019-08-28 07:51] LABS: HEMATOCRIT 39.3 % (42.0-52.0); HEMOGLOBIN 12.4 G/DL (14.2-18.0); MEAN CORPUSCULAR VOLUME 104 FL (80-99); PLATELET COUNT 195 K/UL (150-450); RED BLOOD COUNT 3.79 M/UL (4.70-6.10); RED CELL DISTRIBUTION WIDTH 12.7 % (11.6-14.8); WHITE BLOOD COUNT 15.5 K/UL (4.8-10.8)
[2019-08-28 08:00] VITALS: BP 137/104
[2019-08-28 08:04] LABS: ANION GAP 10 mmol/L (5-15); BLOOD UREA NITROGEN 29 mg/dL (7-18); CALCIUM 9.1 MG/DL (8.5-10.1); CARBON DIOXIDE 27 MMOL/L (21-32); CHLORIDE 103 MMOL/L (98-107); CREATININE 1.5 MG/DL (0.55-1.30); POTASSIUM 4.9 MMOL/L (3.5-5.1); SODIUM 140 MMOL/L (136-145)
[2019-08-28] MEDS: Theophylline ER 100mg ORAL SCH ×3 (08:34→21:00)
[2019-08-28] MEDS: Heparin 5000 units/ml inj SUBQ SCH ×2 (08:35→21:03)
[2019-08-28 12:00] VITALS: BP 139/77
[2019-08-28] MEDS: Azithromycin 500 MG in D5W 275 ML IV SCH (15:31)
[2019-08-28 16:00] VITALS: BP 131/79
--- NOTE | 2019-08-28 19:26 | NUR ---
HAND-OFF: Report given to
--- NOTE | 2019-08-28 19:30 | NUR ---
NURSE NOTES: Received patient awake,alert,resting in bed,no SOB noted.
--- NOTE | 2019-08-28 19:35 | NUR ---
RESPIRATORY NOTE: Received pt on current bipap setting. Explained the benefits of foam tape around the nose bridge area, however pt still refuse. Will give breathing tx. Bipap plugged into red outlet. Will continue to monitor.
[2019-08-28 20:00] VITALS: BP 146/74
[2019-08-29 00:15] VITALS: BP 122/72
[2019-08-29] MEDS: Albuterol/Ipratropium 3ml neb HHN PRN ×4 (03:33→20:57)
[2019-08-29] MEDS: Albuterol ud Inhalation HHN PRN ×3 (03:34→16:28)
[2019-08-29 04:00] VITALS: BP 110/77
[2019-08-29] MEDS: Solu-MEDROL 125mg Inj IV SCH ×2 (04:02→09:16)
[2019-08-29] MEDS: Aztreonam Inj 1 GM in D5W 55 ML IVPB SCH (04:55)
--- NOTE | 2019-08-29 07:18 | NUR ---
HAND-OFF: Report given to Hayley Sullivan RN.
--- NOTE | 2019-08-29 07:19 | NUR ---
NURSE NOTES: Received patient on bed awake with bipap on. No SOB or cardiac distress. IV line intact and patent, no s/s of infiltration. Will continue plan of care. Addendum: 08/29/19 at 1056 by Hayley Sullivan RN Call light within reach.
[2019-08-29 07:32] LABS: HEMATOCRIT 37.9 % (42.0-52.0); HEMOGLOBIN 12.1 G/DL (14.2-18.0); MEAN CORPUSCULAR VOLUME 103 FL (80-99); PLATELET COUNT 201 K/UL (150-450); RED BLOOD COUNT 3.68 M/UL (4.70-6.10); RED CELL DISTRIBUTION WIDTH 12.6 % (11.6-14.8); WHITE BLOOD COUNT 13.1 K/UL (4.8-10.8)
--- NOTE | 2019-08-29 07:58 | General Progress Note ---
Assessment/Plan Problem List: (1) Asthma ICD Codes: J45.909 - Unspecified asthma, uncomplicated SNOMED: 447730225 (2) SOB (shortness of breath) ICD Codes: R06.02 - Shortness of breath SNOMED: 903666695 (3) CVA (cerebral vascular accident) ICD Codes: I63.9 - Cerebral infarction, unspecified SNOMED: 130486110 (4) HTN (hypertension) ICD Codes: I10 - Essential (primary) hypertension SNOMED: 07987639 (5) COPD (chronic obstructive pulmonary disease) ICD Codes: J44.9 - Chronic obstructive pulmonary disease, unspecified SNOMED: 19647819 (6) Cocaine abuse ICD Codes: F14.10 - Cocaine abuse, uncomplicated SNOMED: 15628720, 213161309 Status: stable, progressing Assessment/Plan: o2 pulm tx bp pain control cbc bmp am dc plan Subjective Constitutional: Reports: weakness Allergies: Coded Allergies: PENICILLINS (Unverified Allergy, Unknown, 08/24/19) All Systems: reviewed and negative except above Subjective o2nc calm in bed Objective Last 24 Hour Vital Signs Date Time Temp Pulse Resp B/P (MAP) Pulse Ox O2 Delivery O2 Flow Rate FiO2 08/29/19 05:37 80 23 93 Facial 30 08/29/19 04:00 97.9 92 23 110/77 (88) 98 08/29/19 03:34 80 19 94 Facial 30 82 21 95 Bi-Pap 08/29/19 00:23 84 23 98 Facial 30 08/29/19 00:15 98.5 89 22 122/72 (89) 98 08/28/19 22:42 80 21 99 Facial 30 80 21 98 Room Air 21 08/28/19 20:16 84 24 98 Facial 30 08/28/19 20:00 97.5 94 23 146/74 (98) 95 08/28/19 19:43 96 20 98 Nasal Cannula 2.0 28 92 21 95 08/28/19 19:42 95 Nasal Cannula 2.0 28 08/28/19 19:31 Nasal Cannula 2.0 08/28/19 16:30 88 18 99 Facial 30 08/28/19 16:00 97.3 90 18 131/79 (96) 96 08/28/19 15:29 97 22 97 Room Air 21 08/28/19 12:44 97 16 98 Facial 30 08/28/19 12:00 98.6 93 20 139/77 (97) 94 08/28/19 11:29 98 20 98 Room Air 21 08/28/19 09:25 87 16 99 Facial 30 08/28/19 09:00 Nasal Cannula 2.0 08/28/19 08:00 98.0 94 19 137/104 (115) 93 Intake and Output 08/28/19 08/29/19 19:00 07:00 Intake Total 1855 ml 2770 ml Output Total 1620 ml Balance 1855 ml 1150 ml Intake Oral 860 ml IV Total 55 ml 110 ml Other 1800 ml 1800 ml Output Urine Total 1620 ml # Voids 2 Laboratory Tests 08/29/19 05:32: White Blood Count 13.1H, Red Blood Count 3.68L, Hemoglobin 12.1L, Hematocrit 37.9L, Mean Corpuscular Volume 103H, Mean Corpuscular Hemoglobin 32.9H, Mean Corpuscular Hemoglobin Concent 31.9L, Red Cell Distribution Width 12.6, Platelet Count 201, Mean Platelet Volume 7.1, Neutrophils (%) (Auto) , Lymphocytes (%) (Auto) , Monocytes (%) (Auto) , Eosinophils (%) (Auto) , Basophils (%) (Auto) , Neutrophils % (Manual) [Pending], Lymphocytes % (Manual) [Pending], Platelet Estimate [Pending], Platelet Morphology [Pending], Sodium Level [Pending], Potassium Level [Pending], Chloride Level [Pending], Carbon Dioxide Level [Pending], Blood Urea Nitrogen [Pending], Creatinine [Pending], Estimat Glomerular Filtration Rate [Pending], Glucose Level [Pending], Calcium Level [Pending] Height (Feet): 6 Height (Inches): 3.00 Weight (Pounds): 300 General Appearance: lethargic EENT: normal ENT inspection Neck: normal alignment Cardiovascular: normal peripheral pulses, normal rate, regular rhythm Respiratory/Chest: chest wall non-tender, lungs clear, normal breath sounds Abdomen: normal bowel sounds, non tender, soft Extremities: normal inspection Edema: no edema noted Arm (L), no edema noted Arm (R), no edema noted Leg (L), no edema noted Leg (R), no edema noted Pedal (L), no edema noted Pedal (R), no edema noted Generalized Neurologic: motor weakness Skin: normal pigmentation, warm/dry Max Nickerson DO Aug 29, 2019 07:58
[2019-08-29 08:00] VITALS: BP 152/75
[2019-08-29 08:05] LABS: ANION GAP 6 mmol/L (5-15); BLOOD UREA NITROGEN 25 mg/dL (7-18); CALCIUM 8.8 MG/DL (8.5-10.1); CARBON DIOXIDE 29 MMOL/L (21-32); CHLORIDE 103 MMOL/L (98-107); CREATININE 1.3 MG/DL (0.55-1.30); POTASSIUM 4.8 MMOL/L (3.5-5.1); SODIUM 138 MMOL/L (136-145)
[2019-08-29] MEDS: Theophylline ER 100mg ORAL SCH ×2 (09:00→20:02)
[2019-08-29] MEDS: Heparin 5000 units/ml inj SUBQ SCH ×2 (09:18→20:06)
--- NOTE | 2019-08-29 11:23 | NUR ---
CASE MANAGEMENT:REVIEW 08/29/19 SI: COPD. ASTHMA COCAINE AND PCP ABUSE 97.4 73 18 152/75 95% ON BIPAP 30% FIO2 WBC+13.1 BUN+25 GLUCOSE+142 IS: IV SOLUMEDROL 60MG Q6HRS IV AZITHROMYCIN Q24 IV AZACTAM Q8HRS MARNIE-DUR PO Q12 : TELEMETRY STATUS DCP: FROM HOME
[2019-08-29 12:00] VITALS: BP 156/80
[2019-08-29] MEDS ORDERED: BACTRIM-DS1 EA ORAL (12:19)
--- NOTE | 2019-08-29 12:21 | Pulmonology Progress Note ---
Assessment/Plan Problems: (1) Acute bronchitis (2) COPD (chronic obstructive pulmonary disease) (3) Nicotine addiction (4) Active smoker (5) PCP (phencyclidine) abuse (6) Cocaine abuse Assessment/Plan feeling much better change abx to po dc steroids renal function better. Subjective ROS Limited/Unobtainable: No Constitutional: Reports: no symptoms HEENT: Repors: no symptoms Respiratory: Reports: no symptoms Allergies: Coded Allergies: PENICILLINS (Unverified Allergy, Unknown, 08/24/19) Objective Last 24 Hour Vital Signs Date Time Temp Pulse Resp B/P (MAP) Pulse Ox O2 Delivery O2 Flow Rate FiO2 08/29/19 09:00 Nasal Cannula 2.0 08/29/19 08:16 94 22 95 Facial 30 94 22 95 Bi-Pap 30 08/29/19 08:16 95 Bi-Pap 30 08/29/19 08:00 97.4 73 18 152/75 (100) 95 08/29/19 05:37 80 23 93 Facial 30 08/29/19 04:00 97.9 92 23 110/77 (88) 98 08/29/19 03:34 80 19 94 Facial 30 82 21 95 Bi-Pap 08/29/19 00:23 84 23 98 Facial 30 08/29/19 00:15 98.5 89 22 122/72 (89) 98 08/28/19 22:42 80 21 99 Facial 30 80 21 98 Room Air 21 08/28/19 20:16 84 24 98 Facial 30 08/28/19 20:00 97.5 94 23 146/74 (98) 95 08/28/19 19:43 96 20 98 Nasal Cannula 2.0 28 92 21 95 08/28/19 19:42 95 Nasal Cannula 2.0 28 08/28/19 19:31 Nasal Cannula 2.0 08/28/19 16:30 88 18 99 Facial 30 08/28/19 16:00 97.3 90 18 131/79 (96) 96 08/28/19 15:29 97 22 97 Room Air 21 08/28/19 12:44 97 16 98 Facial 30 Intake and Output 08/28/19 08/29/19 19:00 07:00 Intake Total 1855 ml 2770 ml Output Total 1620 ml Balance 1855 ml 1150 ml Intake Oral 860 ml IV Total 55 ml 110 ml Other 1800 ml 1800 ml Output Urine Total 1620 ml # Voids 2 General Appearance: WD/WN HEENT: normocephalic, atraumatic Respiratory/Chest: chest wall non-tender, lungs clear Cardiovascular: normal peripheral pulses, normal rate Abdomen: normal bowel sounds, soft, non tender Extremities: no cyanosis Skin: no rash Laboratory Tests 08/29/19 05:32: White Blood Count 13.1H, Red Blood Count 3.68L, Hemoglobin 12.1L, Hematocrit 37.9L, Mean Corpuscular Volume 103H, Mean Corpuscular Hemoglobin 32.9H, Mean Corpuscular Hemoglobin Concent 31.9L, Red Cell Distribution Width 12.6, Platelet Count 201, Mean Platelet Volume 7.1, Neutrophils (%) (Auto) , Lymphocytes (%) (Auto) , Monocytes (%) (Auto) , Eosinophils (%) (Auto) , Basophils (%) (Auto) , Differential Total Cells Counted 100, Neutrophils % ( Manual) 93H, Lymphocytes % (Manual) 6L, Monocytes % (Manual) 1, Eosinophils % ( Manual) 0, Basophils % (Manual) 0, Band Neutrophils 0, Platelet Estimate Adequate, Platelet Morphology Normal, Macrocytosis 2+, Sodium Level 138, Potassium Level 4.8, Chloride Level 103, Carbon Dioxide Level 29, Anion Gap 6, Blood Urea Nitrogen 25H, Creatinine 1.3, Estimat Glomerular Filtration Rate > 60 , Glucose Level 142H, Calcium Level 8.8 Current Medications Medications (Trade) Dose Ordered Sig/Norbert Route PRN Reason Start Time Stop Time Status Last Admin Dose Admin Albuterol Sulfate (Proventil) 2.5 mg Q4HR PRN HHN wheezing 08/27/19 01:00 08/30/19 02:29 08/29/19 08:21 Albuterol/ Ipratropium (Albuterol/ Ipratropium) 4 ml Q4H PRN HHN dyspnea 08/27/19 01:45 08/30/19 09:44 08/29/19 08:16 Azithromycin 500 mg/Dextrose 275 ml @ 275 mls/hr Q24HRS IV 08/27/19 16:00 08/31/19 16:59 08/28/19 15:31 Aztreonam 1 gm/ Dextrose 55 ml @ 110 mls/hr Q8HR IVPB 08/27/19 06:00 09/01/19 13:59 08/29/19 04:55 Dextrose (Dextrose 50%) 25 ml Q30M PRN IV Hypoglycemia 08/26/19 22:45 09/24/19 09:44 Dextrose (Dextrose 50%) 50 ml Q30M PRN IV Hypoglycemia 08/26/19 22:45 09/24/19 09:44 Heparin Sodium (Porcine) (Heparin 5000 units/ml) 5,000 units EVERY 12 HOURS SUBQ 08/27/19 09:00 09/24/19 20:59 08/29/19 09:18 Promethazine HCl/ Codeine (Phenergan with Codeine) 5 ml Q6H PRN ORAL cough 08/27/19 03:45 09/24/19 09:44 Temazepam (Restoril) 15 mg HSPRN PRN ORAL Insomnia 08/27/19 09:45 09/01/19 09:44 Theophylline (Sudhir-Dur) 100 mg EVERY 12 HOURS ORAL 08/27/19 09:00 09/24/19 09:59 Jayro Denis MD Aug 29, 2019 12:21
[2019-08-29] MEDS ORDERED: VENTOLIN HFA18 GM INH (12:23)
--- NOTE | 2019-08-29 12:59 | NUR ---
NURSE NOTES: Patient for discharge but refuses to go. He says he's not well. Dr Denis aware. Left message for case management, awaiting response.
--- NOTE | 2019-08-29 13:37 | Cardiology Report ---
APPROVED REPORT EKG Measurement Heart [id number] IL [id number] Normal sinus rhythm Normal ECG
--- NOTE | 2019-08-29 13:48 | NUR ---
NURSE NOTES: Spoke to [facility] Coordinator regarding patient's refusal to go home saying he is still too weak to walk. Lori to place orders for STAT PT evaluation.
--- NOTE | 2019-08-29 13:52 | NUR ---
NURSE NOTES: Spoke with Daniella of PT, RN requesting stat eval for patient.
--- NOTE | 2019-08-29 14:10 | NUR ---
NURSE NOTES: Patient with Daniella of PT, doing evaluation.
--- NOTE | 2019-08-29 14:20 | NUR ---
PT EVALUATION NOTE Patient seen for initial evaluation, see complete evaluation for details. Patient presents with decreased endurance for functional tasks due to c/o SOB with activity. Patient's ambulation limited to 30 ft due to wheezing, coughing and c/o SOB. Patient able to ambulate without assistive device with supervision. Patient will benefit from skilled inpatient PT intervention to educate patient in proper breathing techniques with mobility to increase tolerance for ADLs, Recommend discharge home once medically cleared by MD. No DME needs anticipated at this time. Addendum: 08/29/19 at 1456 by NIKHIL MAHMOOD PT Amended: Links added.
--- NOTE | 2019-08-29 14:46 | NUR ---
*-* INSURANCE *-* ALL AVAILABLE CLINICALS AND REVIEWS HAVE BEEN FAXED TO: KAROLYN DELANEY; EDDIE P- REP WOULD NOT RELEASE PH#...... P- [phone]...MAIN LINE TO DEPT F- [phone]...REVIEW/CLINICAL.......
--- NOTE | 2019-08-29 15:00 | NUR ---
NURSE NOTES: Patient noted with coughing and wheezing, c/o SOB. Maintained on O2.
[2019-08-29 16:00] VITALS: BP 136/76
--- NOTE | 2019-08-29 16:00 | NUR ---
NURSE NOTES: Patient requesting to be seen by mattress spring encaser. Spoke with Tracy who will relay message to mattress spring encaser Lori. Tracy said Lori is aware of patient's condition after being informed by PT Pam of PT evaluation done today.
[2019-08-29] MEDS: Bactrim-DS 1 tab ORAL SCH (17:13)
--- NOTE | 2019-08-29 18:59 | NUR ---
NURSE NOTES: Patient still waiting to be seen by complex case manager Lori.
--- NOTE | 2019-08-29 19:42 | NUR ---
HAND-OFF: Report given to Blaire.
[2019-08-29 20:00] VITALS: BP 139/77
--- NOTE | 2019-08-29 23:05 | NUR ---
RESPIRATORY NOTE: Received pt on BiPAP 10/06, backup rate 14, 30%. Pt on a Facial mask, skin intact, no redness/breakdowns noted. Pt is stil refusing to wear tape despite explaining pros & cons to pt, bedside RN aware. Pt is alert/awake, follows commands. B/S arlin. diminished, nonproductive cough. BiPAP plugged into red outlet, Alarms on & audible. Pt in no apparent distress at this time. Will continue plan of care.
[2019-08-30] VITALS: BP 142/78
[2019-08-30] MEDS: Albuterol/Ipratropium 3ml neb HHN PRN ×4 (01:17→18:53)
[2019-08-30 04:00] VITALS: BP 147/80
--- NOTE | 2019-08-30 06:53 | NUR ---
HAND-OFF: Report given to Timi Brown RN. Pt is in stable condition.
[2019-08-30 07:24] LABS: BASOPHILS % (AUTO) 2.3 % (0.0-2.0); EOSINOPHILS % (AUTO) 0.2 % (0.0-3.0); HEMATOCRIT 40.6 % (42.0-52.0); HEMOGLOBIN 12.6 G/DL (14.2-18.0); LYMPHOCYTES % (AUTO) 17.6 % (20.0-45.0); MEAN CORPUSCULAR VOLUME 104 FL (80-99); MONOCYTES % (AUTO) 7.5 % (1.0-10.0); NEUTROPHILS % (AUTO) 72.5 % (45.0-75.0); PLATELET COUNT 193 K/UL (150-450); RED BLOOD COUNT 3.91 M/UL (4.70-6.10); RED CELL DISTRIBUTION WIDTH 12.8 % (11.6-14.8); WHITE BLOOD COUNT 10.4 K/UL (4.8-10.8)
[2019-08-30 07:44] LABS: ANION GAP 9 mmol/L (5-15); BLOOD UREA NITROGEN 30 mg/dL (7-18); CALCIUM 8.7 MG/DL (8.5-10.1); CARBON DIOXIDE 26 MMOL/L (21-32); CHLORIDE 102 MMOL/L (98-107); CREATININE 1.4 MG/DL (0.55-1.30); POTASSIUM 5.3 MMOL/L (3.5-5.1); SODIUM 137 MMOL/L (136-145)
--- NOTE | 2019-08-30 07:45 | NUR ---
NURSE NOTES: PT IS AXOX4. IN NO APPARENT DISTRESS AT THIS TIME. PT REFUSES DISCHARGE WHEN RN MADE PT AWARE OF DISCHARGE ORDER FROM YESTERDAY. PT STATES HE IS NOT READY TO GO HOME YET AND THE ANTIBIOTICS "HAVE JUST STARTED TO KICK IN". PT STATES HE FEELS HE WILL BE READY BY THURSDAY. PER REPORT, PT HAS BEEN EXPERIENCING SOB WHEN AMBULATING.
[2019-08-30 08:00] VITALS: BP 133/61
[2019-08-30] MEDS: Bactrim-DS 1 tab ORAL SCH ×2 (08:08→20:04)
[2019-08-30] MEDS: Heparin 5000 units/ml inj SUBQ SCH ×2 (08:16→20:05)
[2019-08-30] MEDS: Theophylline ER 100mg ORAL SCH ×2 (08:16→20:02)
--- NOTE | 2019-08-30 09:15 | NUR ---
NURSE NOTES: RN LEFT MESSAGE FOR DR WINSTON REGARDING ORDER FOR WOUND EVAL FOR POSSIBLE STASIS ULCER OF LLE.
[2019-08-30] MEDS ORDERED: Albuterol/Ipratropium 3ml neb HHN PRN (10:15)
--- NOTE | 2019-08-30 10:30 | NUR ---
NURSE NOTES: RN RECEIVED ORDER FOR WOUND EVAL BY DR TUTTLE. PT WAS EVALUATED BY [facility] WOUND CARE NURSE. CLEANSE WITH NS, PAT DRY, APPLY AQUACEL (SILVER ALGINATE), AND DRY DRESSING. RN RECOMMENDED VENOUS AND ARTERIAL DUPLEX. PER DR TUTTLE, HE WILL TAKE CARE OF IT.
[2019-08-30 12:00] VITALS: BP 133/75
--- NOTE | 2019-08-30 12:28 | Pulmonology Progress Note ---
Assessment/Plan Problems: (1) Acute bronchitis (2) COPD (chronic obstructive pulmonary disease) (3) Nicotine addiction (4) Active smoker (5) PCP (phencyclidine) abuse (6) Cocaine abuse Assessment/Plan coughing refused to be discharged yesterday will get a CXR today change abx to po dc steroids renal function better. Subjective Constitutional: Reports: no symptoms Allergies: Coded Allergies: PENICILLINS (Unverified Allergy, Unknown, 08/24/19) Objective Last 24 Hour Vital Signs Date Time Temp Pulse Resp B/P (MAP) Pulse Ox O2 Delivery O2 Flow Rate FiO2 08/30/19 10:45 85 24 98 Nasal Cannula 2.0 28 86 22 97 08/30/19 10:45 89 24 98 Facial 30 08/30/19 09:10 89 24 96 Facial 30 08/30/19 09:00 Nasal Cannula 2.0 08/30/19 08:00 97.8 82 18 133/61 (85) 95 08/30/19 07:00 95 Bi-Pap 30 08/30/19 07:00 84 25 97 Facial 30 08/30/19 05:48 81 20 98 Bi-Pap 30 08/30/19 05:31 91 24 98 Bi-Pap 30 08/30/19 05:31 91 24 98 Facial 30 08/30/19 04:00 97.8 75 20 147/80 (102) 95 08/30/19 03:46 94 28 98 Facial 30 08/30/19 01:32 85 20 99 Bi-Pap 30 08/30/19 01:17 85 21 95 Bi-Pap 30 08/30/19 00:38 82 21 96 Facial 30 08/30/19 00:00 97.6 74 18 142/78 (99) 96 08/29/19 23:05 81 14 97 Facial 30 08/29/19 23:05 81 14 96 Bi-Pap 30 08/29/19 21:16 87 22 95 Facial 30 87 22 95 Bi-Pap 30 08/29/19 21:00 Nasal Cannula 2.0 08/29/19 20:00 97.9 88 18 139/77 (97) 94 08/29/19 19:17 97 Nasal Cannula 2.0 28 08/29/19 16:29 90 20 99 Nasal Cannula 3.0 32 88 20 96 08/29/19 16:00 98.2 81 19 136/76 (96) 96 Intake and Output 08/29/19 08/30/19 19:00 07:00 Intake Total 1200 ml Output Total 1950 ml Balance -750 ml Other 1200 ml Output Urine Total 1950 ml # Voids 3 General Appearance: WD/WN HEENT: normocephalic, anicteric Cardiovascular: normal peripheral pulses, normal rate Abdomen: soft, non tender, no organomegaly Genitourinary: normal external genitalia Skin: no lesions Laboratory Tests 08/30/19 06:55: White Blood Count 10.4, Red Blood Count 3.91L, Hemoglobin 12.6L, Hematocrit 40.6L, Mean Corpuscular Volume 104H, Mean Corpuscular Hemoglobin 32.3H, Mean Corpuscular Hemoglobin Concent 31.1L, Red Cell Distribution Width 12.8, Platelet Count 193, Mean Platelet Volume 7.5, Neutrophils (%) (Auto) 72.5, Lymphocytes (%) (Auto) 17.6L, Monocytes (%) (Auto) 7.5, Eosinophils (%) (Auto) 0.2, Basophils (%) (Auto) 2.3H, Sodium Level 137, Potassium Level 5.3H, Chloride Level 102, Carbon Dioxide Level 26, Anion Gap 9, Blood Urea Nitrogen 30H, Creatinine 1.4H, Estimat Glomerular Filtration Rate > 60, Glucose Level 73L , Calcium Level 8.7 Current Medications Medications (Trade) Dose Ordered Sig/Norbert Route PRN Reason Start Time Stop Time Status Last Admin Dose Admin Albuterol/ Ipratropium (Albuterol/ Ipratropium) 4 ml Q4H PRN HHN Shortness of Breath 08/30/19 10:30 09/04/19 10:29 08/30/19 10:25 Dextrose (Dextrose 50%) 25 ml Q30M PRN IV Hypoglycemia 08/26/19 22:45 09/24/19 09:44 Dextrose (Dextrose 50%) 50 ml Q30M PRN IV Hypoglycemia 08/26/19 22:45 09/24/19 09:44 Heparin Sodium (Porcine) (Heparin 5000 units/ml) 5,000 units EVERY 12 HOURS SUBQ 08/27/19 09:00 09/24/19 20:59 08/30/19 08:16 Promethazine HCl/ Codeine (Phenergan with Codeine) 5 ml Q6H PRN ORAL cough 08/27/19 03:45 09/24/19 09:44 08/30/19 01:35 Temazepam (Restoril) 15 mg HSPRN PRN ORAL Insomnia 08/27/19 09:45 09/01/19 09:44 Theophylline (Sudhir-Dur) 100 mg EVERY 12 HOURS ORAL 08/27/19 09:00 09/24/19 09:59 Trimethoprim/ Sulfamethoxazole (Bactrim-DS) 1 tab TWICE A DAY ORAL 08/29/19 18:00 09/05/19 17:59 08/30/19 08:08 Jayro Denis MD Aug 30, 2019 12:28
[2019-08-30] MEDS ORDERED: Lidocaine 1% MPF 10mg/ml 5ml HHN PRN (12:30)
--- NOTE | 2019-08-30 12:50 | NUR ---
RADIOLOGY DEPT, CHEST X-RAY DONE.-P.DYE
--- NOTE | 2019-08-30 13:52 | General Progress Note ---
Assessment/Plan Problem List: (1) Asthma ICD Codes: J45.909 - Unspecified asthma, uncomplicated SNOMED: 005768732 (2) SOB (shortness of breath) ICD Codes: R06.02 - Shortness of breath SNOMED: 535001842 (3) CVA (cerebral vascular accident) ICD Codes: I63.9 - Cerebral infarction, unspecified SNOMED: 698244753 (4) HTN (hypertension) ICD Codes: I10 - Essential (primary) hypertension SNOMED: 93976286 (5) COPD (chronic obstructive pulmonary disease) ICD Codes: J44.9 - Chronic obstructive pulmonary disease, unspecified SNOMED: 68555995 (6) Cocaine abuse ICD Codes: F14.10 - Cocaine abuse, uncomplicated SNOMED: 52108186, 422769579 Status: stable, progressing Assessment/Plan: o2 pulm tx bp pain control sx eval cbc bmp am dc plan Subjective Constitutional: Reports: weakness Allergies: Coded Allergies: PENICILLINS (Unverified Allergy, Unknown, 08/24/19) All Systems: reviewed and negative except above Subjective non rebreather calm in bed Objective Last 24 Hour Vital Signs Date Time Temp Pulse Resp B/P (MAP) Pulse Ox O2 Delivery O2 Flow Rate FiO2 08/30/19 13:27 85 17 96 Facial 30 08/30/19 12:00 96.5 94 22 133/75 (94) 91 08/30/19 10:45 85 24 98 Nasal Cannula 2.0 28 86 22 97 08/30/19 10:45 89 24 98 Facial 30 08/30/19 09:10 89 24 96 Facial 30 08/30/19 09:00 Nasal Cannula 2.0 08/30/19 08:00 97.8 82 18 133/61 (85) 95 08/30/19 07:00 95 Bi-Pap 30 08/30/19 07:00 84 25 97 Facial 30 08/30/19 05:48 81 20 98 Bi-Pap 30 08/30/19 05:31 91 24 98 Bi-Pap 30 08/30/19 05:31 91 24 98 Facial 30 08/30/19 04:00 97.8 75 20 147/80 (102) 95 08/30/19 03:46 94 28 98 Facial 30 08/30/19 01:32 85 20 99 Bi-Pap 30 08/30/19 01:17 85 21 95 Bi-Pap 30 08/30/19 00:38 82 21 96 Facial 30 08/30/19 00:00 97.6 74 18 142/78 (99) 96 08/29/19 23:05 81 14 97 Facial 30 08/29/19 23:05 81 14 96 Bi-Pap 30 08/29/19 21:16 87 22 95 Facial 30 87 22 95 Bi-Pap 30 08/29/19 21:00 Nasal Cannula 2.0 08/29/19 20:00 97.9 88 18 139/77 (97) 94 08/29/19 19:17 97 Nasal Cannula 2.0 28 08/29/19 16:29 90 20 99 Nasal Cannula 3.0 32 88 20 96 08/29/19 16:00 98.2 81 19 136/76 (96) 96 Intake and Output 08/29/19 08/30/19 19:00 07:00 Intake Total 1200 ml Output Total 1950 ml Balance -750 ml Other 1200 ml Output Urine Total 1950 ml # Voids 3 Laboratory Tests 08/30/19 06:55: White Blood Count 10.4, Red Blood Count 3.91L, Hemoglobin 12.6L, Hematocrit 40.6L, Mean Corpuscular Volume 104H, Mean Corpuscular Hemoglobin 32.3H, Mean Corpuscular Hemoglobin Concent 31.1L, Red Cell Distribution Width 12.8, Platelet Count 193, Mean Platelet Volume 7.5, Neutrophils (%) (Auto) 72.5, Lymphocytes (%) (Auto) 17.6L, Monocytes (%) (Auto) 7.5, Eosinophils (%) (Auto) 0.2, Basophils (%) (Auto) 2.3H, Sodium Level 137, Potassium Level 5.3H, Chloride Level 102, Carbon Dioxide Level 26, Anion Gap 9, Blood Urea Nitrogen 30H, Creatinine 1.4H, Estimat Glomerular Filtration Rate > 60, Glucose Level 73L , Calcium Level 8.7 Height (Feet): 6 Height (Inches): 3.00 Weight (Pounds): 300 General Appearance: lethargic EENT: normal ENT inspection Neck: normal alignment Cardiovascular: normal peripheral pulses, normal rate, regular rhythm Respiratory/Chest: chest wall non-tender, lungs clear, normal breath sounds Abdomen: normal bowel sounds, non tender, soft Extremities: normal inspection Edema: no edema noted Arm (L), no edema noted Arm (R), no edema noted Leg (L), no edema noted Leg (R), no edema noted Pedal (L), no edema noted Pedal (R), no edema noted Generalized Neurologic: motor weakness Skin: normal pigmentation, warm/dry Max Nickerson DO Aug 30, 2019 13:52
--- NOTE | 2019-08-30 14:58 | NUR ---
*-* INSURANCE *-* ALL AVAILABLE CLINICALS AND REVIEWS HAVE BEEN FAXED TO: KAROLYN DELANEY; EDDIE Calderon- REP WOULD NOT RELEASE PH#...... P- [phone]...MAIN LINE TO DEPT - [phone]...REVIEW/CLINICAL....... Addendum: 08/30/19 at 1502 by JUVENCIO MARQUEZ CM SPOKE TO SIL AT [facility] SHE HAS CONFIRMED CLINICALS ARE BEING RECEIVED ON A DAILY
--- NOTE | 2019-08-30 15:02 | NUR ---
CASE MANAGEMENT:REVIEW 08/30/19 SI: COPD. ASTHMA COCAINE AND PCP ABUSE 96.5 94 22 133/75 95% ON 2L/NC K+5.3 IS: PREDNISONE 40MG PO QD DUONEB HHN Q4HRS PRN BACTRIM PO BID HEPARIN SQ Q12 MARNIE-DUR PO Q12 : TELEMETRY STATUS DCP: FROM HOME PLAN: WEANED FROM BIPAP AND OXYGEN YESTERDAY ASSESSED BY PHYSICAL THERAPIST ~ UNABLE TO AMBULATE WITHOUT BECOMING EXTREMELY WEAK AND SOB OXYGEN REPLACED. WEANED TO PREDNISONE MAY NEED OXYGEN FOR HOME ~ ARTERIAL AND VENOUS DUPLEX PENDING FOR TODAY
--- NOTE | 2019-08-30 15:11 | NUR ---
NURSE NOTES:WOUND CARE NOTES:Pt presented on admission with ulcer medial L tibia . Base of wound pale with fibrinous slough, irregular borders. An area of hyperpigmentation noted periwound extending to benjy L tibia. Moderate amt serous exudate noted . No odor noted . (L)3.5cm x (W)4.8cm. RLE edematous. Pt stated ulcer is chronic and has been treating wound at home . Pt also stated he generally wears compression stockings when at home.Xerosis skin RLE and R foot. R heel is callused. L lower ext edematous with Xerosis skin and scattered dry scabs. L heel dry and callused. Both lower ext and feet washed and moisturized. Wound Medial L tibia cleansed with Saline. Silver Alginate applied to wound ,covered with ABD pad and wrapped with Kerlix from base of toes to below L knee. Pt's legs continuously dependent secondary resp status. Tx.Plan: Cleanse wound L lower ext with Saline. Apply Silver Alginate(Aquacel Ag). Cover with ABD pad and wrap with kerlix from base of toes of toes to below knee daily. Moisturize skin both lower extremities with Phytoplex Lotion Daily .
--- NOTE | 2019-08-30 15:11 | NUR ---
*-* INSURANCE *-* ALL AVAILABLE CLINICALS AND REVIEWS HAVE BEEN FAXED TO: KAROLYN DELANEY; EDDIE P- REP WOULD NOT RELEASE PH#...... P- [phone]...MAIN LINE TO DEPT F- [phone]...REVIEW/CLINICAL....... SPOKE TO SIL AT [facility] SHE HAS CONFIRMED CLINICALS ARE BEING RECEIVED ON A DAILY
[2019-08-30 16:00] VITALS: BP 124/72
--- NOTE | 2019-08-30 16:27 | Consultation ---
History of Present Illness General Date patient seen: Aug 30, 2019 Reason for Hospitalization: Dyspnea/Respdistress Present Illness HPI This is a very pleasant 63-year-old male who lives at home that presented to the emergency department at [facility] for evaluation of shortness of breath and respiratory complaints. Patient was admitted for further work-up care and management. During admission was identified to have wounds on his lower extremities potentially related to venous stasis ulcerations which require care management and work-up. Patient has not had extensive work-up for this prior and complains of discomfort and decreased quality of life from it. Surgery called to evaluate and assist with care. Patient seen, patient evaluated, chart reviewed. States has had swelling lower extremities for a long time. Pt stated ulcer is chronic and has been treating wound at home . Pt also stated he generally wears thigh high compression stockings when at home. knows to elevate legs above level of heart when possible. Swelling worse later in the day. Able to ambulate. Allergies: Coded Allergies: PENICILLINS (Unverified Allergy, Unknown, 08/24/19) Medication History Scheduled Trimethoprim/Sulfamethoxazole (Bactrim Ds Tablet), 1 TAB ORAL TWICE A DAY Scheduled PRN Albuterol Sulfate (Ventolin Hfa), 1 PUFF INH EVERY 6 HOURS PRN Patient History History Provided By: Patient, Medical Record, PMD Healthcare decision maker Resuscitation status Full Code Advanced Directive on File Past Medical/Surgical History Past Medical/Surgical History: (1) PCP (phencyclidine) abuse (2) Cocaine abuse (3) COPD (chronic obstructive pulmonary disease) (4) Nicotine addiction (5) Status asthmaticus with COPD (chronic obstructive pulmonary disease) (6) Acute bronchitis (7) SOB (shortness of breath) (8) Asthma (9) HTN (hypertension) (10) CVA (cerebral vascular accident) Review of Systems Review of Symptoms General ROS: no weight loss or fever Psychological ROS: no depression or mood changes, no memory loss Ophthalmic ROS: no visual changes or eye irritation ENT ROS: no nasal congestion, hearing loss, dizziness Allergy and Immunology ROS: no allergic symptoms or urticaria Hematological and Lymphatic ROS: no swollen glands, unusual bleeding or bruising Endocrine ROS: no polyuria, polydipsia, weight changes, temperature intolerance Respiratory ROS: no cough, shortness of breath, or wheezing Cardiovascular ROS: no chest pain or dyspnea on exertion Gastrointestinal ROS: denies abdominal pain, bright red blood in stool. Musculoskeletal ROS: no myalgias or arthralgias Neurological ROS: no TIA or stroke symptoms Dermatological ROS: no new or changing skin lesions, rashes or pruritis Physical Exam Physical Exam General appearance: alert, cooperative, no distress, appears stated age Head: Normocephalic, without obvious abnormality, atraumatic Eyes: conjunctivae/corneas clear. PERRL, EOM's intact. Fundi benign Throat: Lips, mucosa, and tongue normal. Teeth and gums normal Neck: supple, symmetrical, trachea midline, no adenopathy, thyroid: not enlarged, symmetric, no tenderness/mass/nodules, no carotid bruit and no JVD Lungs: clear to auscultation bilaterally Heart: regular rate and rhythm, S1, S2 normal, no murmur, click, rub or gallop Abdomen: soft, non-tender. Bowel sounds normal. No masses, no organomegaly Extremities: extremities lower extremity edema with venous stasis ulcers. Open wound with mild cellulitis. Pulses: 2+ and symmetric Skin: Skin color, texture, turgor normal. No rashes or lesions Neurologic: Grossly normal Last 24 Hour Vital Signs Date Time Temp Pulse Resp B/P (MAP) Pulse Ox O2 Delivery O2 Flow Rate FiO2 08/30/19 16:00 97.5 84 16 124/72 (89) 98 08/30/19 13:27 85 17 96 Facial 30 08/30/19 12:00 96.5 94 22 133/75 (94) 91 08/30/19 10:45 85 24 98 Nasal Cannula 2.0 28 86 22 97 08/30/19 10:45 89 24 98 Facial 30 08/30/19 09:10 89 24 96 Facial 30 08/30/19 09:00 Nasal Cannula 2.0 08/30/19 08:00 97.8 82 18 133/61 (85) 95 08/30/19 07:00 95 Bi-Pap 30 08/30/19 07:00 84 25 97 Facial 30 08/30/19 05:48 81 20 98 Bi-Pap 30 08/30/19 05:31 91 24 98 Bi-Pap 30 08/30/19 05:31 91 24 98 Facial 30 08/30/19 04:00 97.8 75 20 147/80 (102) 95 08/30/19 03:46 94 28 98 Facial 30 08/30/19 01:32 85 20 99 Bi-Pap 30 08/30/19 01:17 85 21 95 Bi-Pap 30 08/30/19 00:38 82 21 96 Facial 30 08/30/19 00:00 97.6 74 18 142/78 (99) 96 08/29/19 23:05 81 14 97 Facial 30 08/29/19 23:05 81 14 96 Bi-Pap 30 08/29/19 21:16 87 22 95 Facial 30 87 22 95 Bi-Pap 30 08/29/19 21:00 Nasal Cannula 2.0 08/29/19 20:00 97.9 88 18 139/77 (97) 94 08/29/19 19:17 97 Nasal Cannula 2.0 28 08/29/19 16:29 90 20 99 Nasal Cannula 3.0 32 88 20 96 Intake and Output 08/29/19 08/30/19 19:00 07:00 Intake Total 1200 ml Output Total 1950 ml Balance -750 ml Other 1200 ml Output Urine Total 1950 ml # Voids 3 Laboratory Tests Test 08/30/19 06:55 White Blood Count 10.4 K/UL (4.8-10.8) Red Blood Count 3.91 M/UL (4.70-6.10) L Hemoglobin 12.6 G/DL (14.2-18.0) L Hematocrit 40.6 % (42.0-52.0) L Mean Corpuscular Volume 104 FL (80-99) H Mean Corpuscular Hemoglobin 32.3 PG (27.0-31.0) H Mean Corpuscular Hemoglobin Concent 31.1 G/DL (32.0-36.0) L Red Cell Distribution Width 12.8 % (11.6-14.8) Platelet Count 193 K/UL (150-450) Mean Platelet Volume 7.5 FL (6.5-10.1) Neutrophils (%) (Auto) 72.5 % (45.0-75.0) Lymphocytes (%) (Auto) 17.6 % (20.0-45.0) L Monocytes (%) (Auto) 7.5 % (1.0-10.0) Eosinophils (%) (Auto) 0.2 % (0.0-3.0) Basophils (%) (Auto) 2.3 % (0.0-2.0) H Sodium Level 137 MMOL/L (136-145) Potassium Level 5.3 MMOL/L (3.5-5.1) H Chloride Level 102 MMOL/L (98-107) Carbon Dioxide Level 26 MMOL/L (21-32) Anion Gap 9 mmol/L (5-15) Blood Urea Nitrogen 30 mg/dL (7-18) H Creatinine 1.4 MG/DL (0.55-1.30) H Estimat Glomerular Filtration Rate > 60 mL/min (>60) Glucose Level 73 MG/DL (74-106) L Calcium Level 8.7 MG/DL (8.5-10.1) Height (Feet): 6 Height (Inches): 3.00 Weight (Pounds): 300 Medications Current Medications Medications (Trade) Dose Ordered Sig/Norbert Route PRN Reason Start Time Stop Time Status Last Admin Dose Admin Albuterol/ Ipratropium (Albuterol/ Ipratropium) 4 ml Q4H PRN HHN Shortness of Breath 08/30/19 10:30 09/04/19 10:29 08/30/19 10:25 Dextrose (Dextrose 50%) 25 ml Q30M PRN IV Hypoglycemia 08/26/19 22:45 09/24/19 09:44 Dextrose (Dextrose 50%) 50 ml Q30M PRN IV Hypoglycemia 08/26/19 22:45 09/24/19 09:44 Heparin Sodium (Porcine) (Heparin 5000 units/ml) 5,000 units EVERY 12 HOURS SUBQ 08/27/19 09:00 09/24/19 20:59 08/30/19 08:16 Lidocaine (Xylocaine 1% MPF 5ml) 10 ml Q4H PRN HHN cough 08/30/19 12:30 09/29/19 12:29 Prednisone (predniSONE) 40 mg DAILY ORAL 08/30/19 12:30 09/29/19 12:29 08/30/19 12:41 Promethazine HCl/ Codeine (Phenergan with Codeine) 5 ml Q6H PRN ORAL cough 08/27/19 03:45 09/24/19 09:44 08/30/19 01:35 Temazepam (Restoril) 15 mg HSPRN PRN ORAL Insomnia 08/27/19 09:45 09/01/19 09:44 Theophylline (Sudhir-Dur) 100 mg EVERY 12 HOURS ORAL 08/27/19 09:00 09/24/19 09:59 Trimethoprim/ Sulfamethoxazole (Bactrim-DS) 1 tab Q12HR ORAL 08/30/19 21:00 09/05/19 17:59 Assessment/Plan Problem List: (1) Venous stasis ulcer Assessment & Plan: Pending Arterial and Venous Duplex studies ICD Codes: I83.009 - Varicose veins of unspecified lower extremity with ulcer of unspecified site; L97.909 - Non-pressure chronic ulcer of unspecified part of unspecified lower leg with unspecified severity SNOMED: 24807922, 14286279, 90968498 (2) Lower extremity ulceration Assessment & Plan: Pt presented on admission with ulcer medial L lower extremity / leg. Base of wound noted to be pale with fibrinous slough and irregular borders. An area of hyperpigmentation noted periwound extending to anterior Left tibia with mild periwound cellulitis Moderate amount of serous exudate noted . No odor noted (L)3.5cm x (W)4.8cm. RLE with edema. Xerosis skin RLE and R foot. R heel is callused. L lower ext edematous with Xerosis skin and scattered dry scabs. L heel dry and callused. Both lower ext and feet washed and moisturized. Wound Medial L tibia cleansed with Saline. Tx.Plan: Cleanse wound L lower ext with Saline. Apply Silver Alginate(Aquacel Ag). Cover with ABD pad and wrap with kerlix from base of toes of toes to below knee daily. Moisturize skin both lower extremities with Phytoplex Lotion Daily . Activity as tolerated Keep legs elevated while in bed or sitting Arterial and Venous duplex studies ordered will follow with exam and recommendations ICD Codes: L97.909 - Non-pressure chronic ulcer of unspecified part of unspecified lower leg with unspecified severity SNOMED: 37573715, 535078146 Owen Schultz Aug 30, 2019 16:27
--- NOTE | 2019-08-30 17:00 | NUR ---
NURSE NOTES: RT CONSULTED TO WEAN OFF BIPAP. PT PLACED ON NC 2L O2 AND PT SATURATING 95%. WILL CONTINUE TO MONITOR.
--- NOTE | 2019-08-30 17:18 | Diagnostic Imaging Report ---
Indication: Dyspnea Technique: One view of the chest Comparison: 08/24/2019 Findings: The lungs pleural spaces are clear. The heart is borderline enlarged. There is no significant change Impression: Borderline cardiomegaly. No acute process
--- NOTE | 2019-08-30 18:45 | NUR ---
NURSE NOTES: PT STAYED ON NC 2L O2, WITH OXYGEN SATURATION 95-98%. PT STATES HE STILL HAS DIFFICULTY BREATHING AND REQUESTS FOR PRN BREATHING TREATMENT. RT CALLED AND MADE AWARE. IN NO APPARENT DISTRESS AT THIS TIME.
--- NOTE | 2019-08-30 19:00 | NUR ---
NURSE NOTES: Received a report from QAMAR Capellan. Pt is in stable condition. AAOX4. Able to make needs known. Uses nasal cannula 2L/min. IV site is patent and intact. Bed in lowest position. Bed alarm is on. Call light within reach. Will continue to monitor.
--- NOTE | 2019-08-30 19:23 | NUR ---
HAND-OFF: Report given to Violette MAURICE RN.
[2019-08-30 20:00] VITALS: BP 144/73
[2019-08-31] VITALS: BP 130/79
[2019-08-31] MEDS: Albuterol/Ipratropium 3ml neb HHN PRN ×5 (00:01→17:21)
[2019-08-31 04:00] VITALS: BP 115/74
--- NOTE | 2019-08-31 06:53 | NUR ---
HAND-OFF: Report given to QAMAR Capellan. Pt is in stable condition.
[2019-08-31 07:09] LABS: ALANINE AMINOTRANSFERASE 54 U/L (12-78); ALBUMIN 3.2 G/DL (3.4-5.0); ALBUMIN/GLOBULIN RATIO 0.8 (1.0-2.7); ALKALINE PHOSPHATASE 73 U/L (46-116); ANION GAP 6 mmol/L (5-15); ASPARTATE AMINO TRANSFERASE 29 U/L (15-37); BILIRUBIN,TOTAL 0.5 MG/DL (0.2-1.0); BLOOD UREA NITROGEN 30 mg/dL (7-18); CALCIUM 8.8 MG/DL (8.5-10.1); CARBON DIOXIDE 31 MMOL/L (21-32); CHLORIDE 102 MMOL/L (98-107); CREATININE 1.5 MG/DL (0.55-1.30); PHOSPHORUS 3.9 MG/DL (2.5-4.9); POTASSIUM 4.9 MMOL/L (3.5-5.1); SODIUM 139 MMOL/L (136-145)
[2019-08-31 07:13] LABS: BASOPHILS % (AUTO) 2.4 % (0.0-2.0); EOSINOPHILS % (AUTO) 0.3 % (0.0-3.0); HEMATOCRIT 39.7 % (42.0-52.0); HEMOGLOBIN 12.9 G/DL (14.2-18.0); LYMPHOCYTES % (AUTO) 16.8 % (20.0-45.0); MEAN CORPUSCULAR VOLUME 102 FL (80-99); MONOCYTES % (AUTO) 6.6 % (1.0-10.0); NEUTROPHILS % (AUTO) 73.9 % (45.0-75.0); PLATELET COUNT 206 K/UL (150-450); RED CELL DISTRIBUTION WIDTH 12.3 % (11.6-14.8); WHITE BLOOD COUNT 10.4 K/UL (4.8-10.8)
[2019-08-31 08:00] VITALS: BP 130/64
[2019-08-31] MEDS: Bactrim-DS 1 tab ORAL SCH (08:15)
[2019-08-31] MEDS: Heparin 5000 units/ml inj SUBQ SCH (08:21)
[2019-08-31 08:24] VITALS: BP 130/64
[2019-08-31] MEDS: Theophylline ER 100mg ORAL SCH (09:00)
--- NOTE | 2019-08-31 09:04 | General Progress Note ---
Assessment/Plan Problem List: (1) Asthma ICD Codes: J45.909 - Unspecified asthma, uncomplicated SNOMED: 600763959 (2) SOB (shortness of breath) ICD Codes: R06.02 - Shortness of breath SNOMED: 330385393 (3) CVA (cerebral vascular accident) ICD Codes: I63.9 - Cerebral infarction, unspecified SNOMED: 202395634 (4) HTN (hypertension) ICD Codes: I10 - Essential (primary) hypertension SNOMED: 43351660 (5) COPD (chronic obstructive pulmonary disease) ICD Codes: J44.9 - Chronic obstructive pulmonary disease, unspecified SNOMED: 15143332 (6) Cocaine abuse ICD Codes: F14.10 - Cocaine abuse, uncomplicated SNOMED: 39078524, 049051184 Status: stable, progressing Assessment/Plan: o2 pulm tx bp pain control sx eval cbc bmp am dc plan w hh Subjective Constitutional: Reports: weakness Allergies: Coded Allergies: PENICILLINS (Unverified Allergy, Unknown, 08/24/19) All Systems: reviewed and negative except above Subjective o2nc calm in bed Objective Last 24 Hour Vital Signs Date Time Temp Pulse Resp B/P (MAP) Pulse Ox O2 Delivery O2 Flow Rate FiO2 08/31/19 08:24 97.9 89 12 130/64 (86) 08/31/19 08:00 97.9 89 18 130/64 (86) 98 08/31/19 04:00 98.3 80 20 115/74 (88) 96 08/31/19 03:46 87 22 97 Nasal Cannula 3.0 32 83 18 95 08/31/19 00:19 85 20 98 Nasal Cannula 3.0 32 08/31/19 00:01 83 20 95 Nasal Cannula 3.0 32 08/31/19 00:00 98.6 75 21 130/79 (96) 94 08/30/19 21:00 Nasal Cannula 2.0 08/30/19 20:00 98.5 84 20 144/73 (96) 96 08/30/19 19:08 91 20 99 Nasal Cannula 2.0 28 08/30/19 18:53 89 20 96 Nasal Cannula 2.0 28 08/30/19 18:53 96 Nasal Cannula 2.0 28 08/30/19 16:00 97.5 84 16 124/72 (89) 98 08/30/19 13:27 85 17 96 Facial 30 08/30/19 12:00 96.5 94 22 133/75 (94) 91 08/30/19 10:45 85 24 98 Nasal Cannula 2.0 28 86 22 97 08/30/19 10:45 89 24 98 Facial 30 08/30/19 09:10 89 24 96 Facial 30 Intake and Output 08/30/19 08/31/19 18:59 06:59 Intake Total 500 ml 770 ml Output Total 3000 ml Balance 500 ml -2230 ml Intake Oral 500 ml 770 ml Output Urine Total 3000 ml # Voids 2 Laboratory Tests 08/31/19 05:40: White Blood Count 10.4, Red Blood Count 3.90L, Hemoglobin 12.9L, Hematocrit 39.7L, Mean Corpuscular Volume 102H, Mean Corpuscular Hemoglobin 33.1H, Mean Corpuscular Hemoglobin Concent 32.6, Red Cell Distribution Width 12.3, Platelet Count 206, Mean Platelet Volume 7.8, Neutrophils (%) (Auto) 73.9, Lymphocytes (% ) (Auto) 16.8L, Monocytes (%) (Auto) 6.6, Eosinophils (%) (Auto) 0.3, Basophils (%) (Auto) 2.4H, Erythrocyte Sedimentation Rate 26H, Sodium Level 139, Potassium Level 4.9, Chloride Level 102, Carbon Dioxide Level 31, Anion Gap 6, Blood Urea Nitrogen 30H, Creatinine 1.5H, Estimat Glomerular Filtration Rate 57.7, Glucose Level 93, Calcium Level 8.8, Phosphorus Level 3.9, Magnesium Level 2.4, Total Bilirubin 0.5, Aspartate Amino Transf (AST/SGOT) 29, Alanine Aminotransferase (ALT/SGPT) 54, Alkaline Phosphatase 73, C-Reactive Protein, Quantitative < 0.4, Total Protein 7.3, Albumin 3.2L, Globulin 4.1, Albumin/ Globulin Ratio 0.8L Height (Feet): 6 Height (Inches): 3.00 Weight (Pounds): 286 General Appearance: lethargic EENT: normal ENT inspection Neck: normal alignment Cardiovascular: normal peripheral pulses, normal rate, regular rhythm Respiratory/Chest: chest wall non-tender, lungs clear, normal breath sounds Abdomen: normal bowel sounds, non tender, soft Extremities: normal inspection Edema: no edema noted Arm (L), no edema noted Arm (R), no edema noted Leg (L), no edema noted Leg (R), no edema noted Pedal (L), no edema noted Pedal (R), no edema noted Generalized Neurologic: responsive, motor weakness Skin: normal pigmentation, warm/dry Max Nickerson DO Aug 31, 2019 09:04
--- NOTE | 2019-08-31 11:00 | NUR ---
NURSE NOTES: PT ON ROOM AIR. PT IS SATURATING AT 96-100%. DENIES SOB OR DIFFICULTY BREATHING. IN NO APPARENT DISTRESS AT THIS TIME.
--- NOTE | 2019-08-31 11:08 | NUR ---
NURSE NOTES: PT AXOX4, IN NO APPARENT DISTRESS AT THIS TIME. STASIS ULCER DRESSING CHANGED. DENIES PAIN AT THIS TIME. WILL CONTINUE TO MONITOR.
[2019-08-31 11:41] VITALS: BP 121/54
[2019-08-31] MEDS ORDERED: MEDROL DOSEPAK4 MG ORAL (12:15)
[2019-08-31] MEDS ORDERED: ALBUTEROL1.25 MG/3 HHN (12:15)
--- NOTE | 2019-08-31 12:18 | Pulmonology Progress Note ---
Assessment/Plan Problems: (1) Acute bronchitis (2) COPD (chronic obstructive pulmonary disease) (3) Nicotine addiction (4) Active smoker (5) PCP (phencyclidine) abuse (6) Cocaine abuse Assessment/Plan coughing feeling better change abx to po taper steroids renal function better. Subjective ROS Limited/Unobtainable: No Constitutional: Reports: no symptoms HEENT: Repors: no symptoms Respiratory: Reports: no symptoms Allergies: Coded Allergies: PENICILLINS (Unverified Allergy, Unknown, 08/24/19) Objective Last 24 Hour Vital Signs Date Time Temp Pulse Resp B/P (MAP) Pulse Ox O2 Delivery O2 Flow Rate FiO2 08/31/19 11:41 97.7 82 121/54 (76) 97 08/31/19 09:05 96 Nasal Cannula 2.0 28 08/31/19 09:00 Nasal Cannula 2.0 08/31/19 08:24 97.9 89 12 130/64 (86) 08/31/19 08:00 97.9 89 18 130/64 (86) 98 08/31/19 07:32 79 20 98 Nasal Cannula 3.0 32 77 20 94 08/31/19 04:00 98.3 80 20 115/74 (88) 96 08/31/19 03:46 87 22 97 Nasal Cannula 3.0 32 83 18 95 08/31/19 00:19 85 20 98 Nasal Cannula 3.0 32 08/31/19 00:01 83 20 95 Nasal Cannula 3.0 32 08/31/19 00:00 98.6 75 21 130/79 (96) 94 08/30/19 21:00 Nasal Cannula 2.0 08/30/19 20:00 98.5 84 20 144/73 (96) 96 08/30/19 19:08 91 20 99 Nasal Cannula 2.0 28 08/30/19 18:53 89 20 96 Nasal Cannula 2.0 28 08/30/19 18:53 96 Nasal Cannula 2.0 28 08/30/19 16:00 97.5 84 16 124/72 (89) 98 08/30/19 13:27 85 17 96 Facial 30 Intake and Output 08/30/19 08/31/19 18:59 06:59 Intake Total 500 ml 770 ml Output Total 3000 ml Balance 500 ml -2230 ml Intake Oral 500 ml 770 ml Output Urine Total 3000 ml # Voids 2 General Appearance: WD/WN HEENT: normocephalic, atraumatic Respiratory/Chest: chest wall non-tender, crackles/rales, rhonchi Cardiovascular: normal peripheral pulses, normal rate Abdomen: normal bowel sounds, soft, non tender Genitourinary: normal external genitalia Extremities: no clubbing Neurologic/Psychiatric: no motor/sensory deficits Laboratory Tests 08/31/19 05:40: White Blood Count 10.4, Red Blood Count 3.90L, Hemoglobin 12.9L, Hematocrit 39.7L, Mean Corpuscular Volume 102H, Mean Corpuscular Hemoglobin 33.1H, Mean Corpuscular Hemoglobin Concent 32.6, Red Cell Distribution Width 12.3, Platelet Count 206, Mean Platelet Volume 7.8, Neutrophils (%) (Auto) 73.9, Lymphocytes (% ) (Auto) 16.8L, Monocytes (%) (Auto) 6.6, Eosinophils (%) (Auto) 0.3, Basophils (%) (Auto) 2.4H, Erythrocyte Sedimentation Rate 26H, Sodium Level 139, Potassium Level 4.9, Chloride Level 102, Carbon Dioxide Level 31, Anion Gap 6, Blood Urea Nitrogen 30H, Creatinine 1.5H, Estimat Glomerular Filtration Rate 57.7, Glucose Level 93, Calcium Level 8.8, Phosphorus Level 3.9, Magnesium Level 2.4, Total Bilirubin 0.5, Aspartate Amino Transf (AST/SGOT) 29, Alanine Aminotransferase (ALT/SGPT) 54, Alkaline Phosphatase 73, C-Reactive Protein, Quantitative < 0.4, Total Protein 7.3, Albumin 3.2L, Globulin 4.1, Albumin/ Globulin Ratio 0.8L Current Medications Medications (Trade) Dose Ordered Sig/Norbert Route PRN Reason Start Time Stop Time Status Last Admin Dose Admin Albuterol/ Ipratropium (Albuterol/ Ipratropium) 4 ml Q4H PRN HHN Shortness of Breath 08/30/19 10:30 09/04/19 10:29 08/31/19 11:26 Dextrose (Dextrose 50%) 25 ml Q30M PRN IV Hypoglycemia 08/26/19 22:45 09/24/19 09:44 Dextrose (Dextrose 50%) 50 ml Q30M PRN IV Hypoglycemia 08/26/19 22:45 09/24/19 09:44 Heparin Sodium (Porcine) (Heparin 5000 units/ml) 5,000 units EVERY 12 HOURS SUBQ 08/27/19 09:00 09/24/19 20:59 08/31/19 08:21 Lidocaine (Xylocaine 1% MPF 5ml) 10 ml Q4H PRN HHN cough 08/30/19 12:30 09/29/19 12:29 Prednisone (predniSONE) 40 mg DAILY ORAL 08/30/19 12:30 09/29/19 12:29 08/31/19 08:15 Promethazine HCl/ Codeine (Phenergan with Codeine) 5 ml Q6H PRN ORAL cough 08/27/19 03:45 09/24/19 09:44 08/30/19 01:35 Temazepam (Restoril) 15 mg HSPRN PRN ORAL Insomnia 08/27/19 09:45 09/01/19 09:44 Theophylline (Sudhir-Dur) 100 mg EVERY 12 HOURS ORAL 08/27/19 09:00 09/24/19 09:59 Trimethoprim/ Sulfamethoxazole (Bactrim-DS) 1 tab Q12HR ORAL 08/30/19 21:00 09/05/19 17:59 08/31/19 08:15 Jayro Denis MD Aug 31, 2019 12:18
--- NOTE | 2019-08-31 13:59 | NUR ---
NURSE NOTES: DR GARCIA WAS MADE AWARE OF PT'S REQUEST FOR PRESCRIPTIONS AND SPOKE TO PT AT BEDSIDE. RN FAXED PRESCRIPTIONS TO [facility]. CONFIRMED RECEIPT OF PRESCRIPTIONS VIA FAX WITH TECH.
--- NOTE | 2019-08-31 14:45 | NUR ---
*-* INSURANCE *-* ALL AVAILABLE CLINICALS AND REVIEWS HAVE BEEN FAXED TO: [facility]OL[facility] DELANE[facility]; EDDIE Calderon- REP WOULD NOT RELEASE PH#...... P- [phone]...MAIN LINE TO DEPT F- [phone]...REVIEW/CLINICAL....... Addendum: 08/31/19 at 1452 by JUVENCIO MARQUEZ CM CALLED KAROLYN AND SPOKE TO GALA AND SHE HAS CONFIRMED CLINICALS HAVE BEEN RECEIVED PENDING AUTH # [id number]
--- NOTE | 2019-08-31 15:21 | NUR ---
NURSE NOTES: PT STATES HE NEEDS TRANSPORTATION UPON DISCHARGE. LEFT MESSAGE FOR [facility] VERDUGO [id number]
--- NOTE | 2019-08-31 15:47 | NUR ---
DISCHARGE PLANNING FAXED ORDERS FOR HOME HEALTH AND HOME OXYGEN TO: [facility] T: [phone] F: [phone] AND [facility] T: [phone] F: [phone] AND F: [phone] AND [facility] F: [phone] NEED OXYGEN ORDER WRITTEN ON A PRESCRIPTION AND MD'S HAVE LEFT FOR THE DAY Addendum: 08/31/19 at 1607 by CARINE COTTON LVN LVN [place] FOR [facility] IS DEE T: [phone] OXYGEN WILL PROBABLY NOT BE DELIVERED UNTIL TOMORROW
[2019-08-31 15:51] VITALS: BP 125/67
[2019-08-31] MEDS ORDERED: Tubing IV Secondary IV ONE (16:03)
[2019-08-31] MEDS ORDERED: NS 500ML ONE (16:03)
--- NOTE | 2019-08-31 16:06 | NUR ---
NURSE NOTES: PT REFUSING OXYGEN FOR HOME USE, STATES HE DOESN'T WANT TO WAIT FOR IT TO BE DELIVERED AND DOESN'T NEED IT. MUD TRUCKER CARINE MADE AWARE. PT AGREES TO BE DISCHARGED WITH [facility]. PT RECEIVED DISCHARGE MEDICATIONS FROM [facility]. MEDS REVIEWED WITH PT AT BEDSIDE.
--- NOTE | 2019-08-31 16:33 | NUR ---
NURSE NOTES: PT EDUCATED ON DISCHARGE MEDICATIONS AND DISCHARGE PACKET. BELONGINGS REVIEWED AT BEDSIDE. ALL BELONGINGS ACCOUNTED PER PT. PT DID NOT WANT TO REVIEW BELONGINGS AND STATED HE HAS EVERYTHING. IV ACCESS TO BE TAKEN OUT UPON DISCHARGE. PT STATES HE WOULD LIKE TO EAT DINNER BEFORE CALLING [facility]. PT STATES HE HAS SOMEONE AT HOME TO RECEIVE HIM. PT GIVEN INFORMATION FOR [facility] AND MADE AWARE THE HOME HEALTH OFFICE WILL BE CONTACTING HIM TO SET UP AN APPOINTMENT. PT VERBALIZED UNDERSTANDING.
--- NOTE | 2019-08-31 19:15 | NUR ---
NURSE NOTES: IV ACCESS DISCONTINUED. PT HAS DISCHARGE MEDICATIONS AND DISCHARGE PACKET. PT WAS EDUCATED ON URGENT S/S AND WHEN TO CALL EMERGENCY SERVICES. PT VERBALIZED UNDERSTANDING. PT WAS ESCORTED TO [facility] VIA WHEELCHAIR WITH NURSING SCHEDULER. PT WAS DISCHARGED IN STABLE CONDITION.
--- NOTE | 2019-08-31 20:28 | Surgery Progress Note ---
Surgery Progress Note Subjective Additional Comments Patient seen and examined bedside. States he still having some amatory discomfort. States he spilled a walk up a flight of stairs on a problem and even bike ride a few miles. States he is significantly deconditioned compared to that. Venous and arterial duplex is noted. No DVT and a good arterial flow. Dressing stable. Patient again instructed to keep legs elevated when possible. Objective Last 24 Hour Vital Signs Date Time Temp Pulse Resp B/P (MAP) Pulse Ox O2 Delivery O2 Flow Rate FiO2 08/31/19 17:21 95 20 98 Nasal Cannula 3.0 32 103 22 97 08/31/19 15:51 98.5 70 19 125/67 (86) 100 08/31/19 11:41 97.7 82 121/54 (76) 97 08/31/19 09:05 96 Nasal Cannula 2.0 28 08/31/19 09:00 Nasal Cannula 2.0 08/31/19 08:24 97.9 89 12 130/64 (86) 08/31/19 08:00 97.9 89 18 130/64 (86) 98 08/31/19 07:32 79 20 98 Nasal Cannula 3.0 32 77 20 94 08/31/19 04:00 98.3 80 20 115/74 (88) 96 08/31/19 03:46 87 22 97 Nasal Cannula 3.0 32 83 18 95 08/31/19 00:19 85 20 98 Nasal Cannula 3.0 32 08/31/19 00:01 83 20 95 Nasal Cannula 3.0 32 08/31/19 00:00 98.6 75 21 130/79 (96) 94 08/30/19 21:00 Nasal Cannula 2.0 I&O Intake and Output 08/30/19 08/31/19 19:00 07:00 Intake Total 500 ml 770 ml Output Total 3000 ml Balance 500 ml -2230 ml Intake Oral 500 ml 770 ml Output Urine Total 3000 ml # Voids 2 Dressing: dry Wound: clean Cardiovascular: RSR Respiratory: clear Abdomen: soft, flat, present bowel sounds, non-distended Extremities: edema, no tenderness, no cyanosis Laboratory Tests Test 08/31/19 05:40 White Blood Count 10.4 K/UL (4.8-10.8) Red Blood Count 3.90 M/UL (4.70-6.10) L Hemoglobin 12.9 G/DL (14.2-18.0) L Hematocrit 39.7 % (42.0-52.0) L Mean Corpuscular Volume 102 FL (80-99) H Mean Corpuscular Hemoglobin 33.1 PG (27.0-31.0) H Mean Corpuscular Hemoglobin Concent 32.6 G/DL (32.0-36.0) Red Cell Distribution Width 12.3 % (11.6-14.8) Platelet Count 206 K/UL (150-450) Mean Platelet Volume 7.8 FL (6.5-10.1) Neutrophils (%) (Auto) 73.9 % (45.0-75.0) Lymphocytes (%) (Auto) 16.8 % (20.0-45.0) L Monocytes (%) (Auto) 6.6 % (1.0-10.0) Eosinophils (%) (Auto) 0.3 % (0.0-3.0) Basophils (%) (Auto) 2.4 % (0.0-2.0) H Erythrocyte Sedimentation Rate 26 MM/HR (0-20) H Sodium Level 139 MMOL/L (136-145) Potassium Level 4.9 MMOL/L (3.5-5.1) Chloride Level 102 MMOL/L (98-107) Carbon Dioxide Level 31 MMOL/L (21-32) Anion Gap 6 mmol/L (5-15) Blood Urea Nitrogen 30 mg/dL (7-18) H Creatinine 1.5 MG/DL (0.55-1.30) H Estimat Glomerular Filtration Rate 57.7 mL/min (>60) Glucose Level 93 MG/DL (74-106) Calcium Level 8.8 MG/DL (8.5-10.1) Phosphorus Level 3.9 MG/DL (2.5-4.9) Magnesium Level 2.4 MG/DL (1.8-2.4) Total Bilirubin 0.5 MG/DL (0.2-1.0) Aspartate Amino Transf (AST/SGOT) 29 U/L (15-37) Alanine Aminotransferase (ALT/SGPT) 54 U/L (12-78) Alkaline Phosphatase 73 U/L (46-116) C-Reactive Protein, Quantitative < 0.4 mg/dL (0.00-0.90) Total Protein 7.3 G/DL (6.4-8.2) Albumin 3.2 G/DL (3.4-5.0) L Globulin 4.1 g/dL Albumin/Globulin Ratio 0.8 (1.0-2.7) L Plan Problems: (1) Venous stasis ulcer Assessment & Plan: Arterial duplex studies noted. Femoral peroneal popliteal triple lower and distal waveforms stable without significant occlusion. Bilaterally. Venous duplex noted no DVT (2) Lower extremity ulceration Assessment & Plan: Pt presented on admission with ulcer medial L lower extremity / leg. Base of wound noted to be pale with fibrinous slough and irregular borders. An area of hyperpigmentation noted periwound extending to anterior Left tibia with mild periwound cellulitis Moderate amount of serous exudate noted . No odor noted (L)3.5cm x (W)4.8cm. RLE with edema. Xerosis skin RLE and R foot. R heel is callused. L lower ext edematous with Xerosis skin and scattered dry scabs. L heel dry and callused. Both lower ext and feet washed and moisturized. Wound Medial L tibia cleansed with Saline. Tx.Plan: Cleanse wound L lower ext with Saline. Apply Silver Alginate(Aquacel Ag). Cover with ABD pad and wrap with kerlix from base of toes of toes to below knee daily. Moisturize skin both lower extremities with Phytoplex Lotion Daily . Activity as tolerated Keep legs elevated while in bed or sitting Arterial and Venous duplex studies ordered will follow with exam and recommendations Additional Comments Continue with above care plan. From surgical standpoint Owen Schultz Aug 31, 2019 20:28
--- NOTE | 2019-09-01 10:56 | Discharge Summary ---
Discharge Summary Discharge Summary _ DATE OF ADMISSION: 08/26/2019 DATE OF DISCHARGE: 08/31/2019 DISCHARGED BY: Dr. Nickerson REASON FOR ADMISSION: 63 years old male with past medical history of asthma/COPD, hypertension, current smoker, presented with chief complaint of shortness of breath fo one day. Patient reported cough and wheezing. Cough reported productive with yellow color phlegm. Patient was recently discharged from [facility] about 2 weeks ago for COPD exacerbation and pneumonia. Per EMS, patient was wheezing. Patient received bronchodilator treatment in route to the hospital as well as was placed on supplemental oxygen. Patient denied chest pain. No nausea , no vomiting , no diarrhea. Upon evaluation patient was tachypneic and afebrile. Laboratory work-up revealed no leukocytosis , hemoglobin 13.7 , hematocrit 41.5. Platelet count 190. Stable electrolytes. BUN 12, creatinine 1.4. Glucose 113. Stable LFT. Troponin negative. pro BNP 153. EKG demonstrated sinus rhythm, no acute ischemic changes. Urinalysis was unremarkable. Urine toxicology screen was positive for phencyclidine and cocaine. Chest x-ray demonstrated no evidence of acute cardiopulmonary pathology. Patient had a respiratory distress secondary to substance abuse . He reported smoking crack cocaine earlier that day. Patient was placed on the BiPAP in the emergency department , and soon afterwards was able to be weaned off. Patient received bronchodilator treatment along with a loading dose of steroid, empiric antibiotic and admitted for further management. CONSULTANTS: pulmonary Dr. Denis surgery Dr. Schultz [facility]: Patient admitted. Supplemental oxygen provided to keep pulse oximetry above 90%. Pulmonary toilet provided with nebulizing therapy around the clock and as needed. Patient was started on intravenous steroids with gradual tapering down and empiric antibiotic. Trial of theophylline initiated. Antitussive provided as needed. Sputum culture revealed Kavitha. Follow-up chest x-ray revealed borderline cardiomegaly no acute process. Patient was counseled on smoking cessation Patient declined nicotine patch . Patient was counseled on abstinence from illicit street drugs. Patient presented with lower extremity ulcerations /venous stasis ulcer. Arterial duplex bilateral lower extremity revealed no evidence of significant arterial occlusive disease bilaterally. Venous duplex revealed no evidence of acute DVT. Wound care provided as per surgeon recommendation. Patient was advised to keep legs elevated while in the bed or sitting. Patient clinically stabilized and was ready for discharge home with home health services for wound care. Home oxygen was arranged for delivery . FINAL DIAGNOSES: COPD/asthma Acute bronchitis Nicotine addiction Active smoker PCP and cocaine abuse Lower extremity ulcerations Venous stasis ulcer Hypertension History of CVA DISCHARGE MEDICATIONS: See Medication Reconciliation list. DISCHARGE INSTRUCTIONS: Patient was discharged home with home health services. Home oxygen was arranged. Follow up with primary care provider in one week. I have been assigned to dictate discharge summary for this account. I was not involved in the patient's management. Layla Alvarez NP Sep 01, 2019 10:55
--- NOTE | 2019-09-01 14:26 | Diagnostic Imaging Report ---
APPROVED REPORT CPT Code: 17885 Symptoms Comments: Edema Comments Technically difficult study due to vessel depth (distal-thigh and calf area). BILATERAL: Common femoral artery waveform analysis is within normal limits at rest. Color flow duplex sonography reveals patency of the superficial femoral, popliteal, and tibial arteries, there is no evidence of stenosis or occlusion within these segments. Doppler tibial artery waveform analysis is within normal limits, bilaterally. There is no evidence of significant arterial occlusive disease, bilaterally.
--- NOTE | 2019-09-01 14:26 | Diagnostic Imaging Report ---
APPROVED REPORT CPT Code: 86459 Present Symptoms Lower Extremity Edema: Bilateral Comments: Technically difficult study due to vessel depth (distal-thigh and calf area). BILATERAL: Imaging reveals a patent deep venous system bilaterally. There is no evidence of thrombus within the common femoral, superficial femoral, popliteal or tibial segments. The greater saphenous veins are within normal limits. Doppler indicates normal spontaneous flow within these segments.
--- NOTE | 2019-09-01 16:21 | NUR ---
*-* INSURANCE *-* DISCHARGE SUMMARY HAVE BEEN FAXED TO: KAROLYN DELANEY; EDDIE P- REP WOULD NOT RELEASE PH#...... P- [phone]...MAIN LINE TO DEPT F- [phone]...REVIEW/CLINICAL.......
== END 2019-08-31 19:15 | disposition home health service (06) | DRG 140 ==
LOC: EDBD 23:28 → EMR 23:59 → 2E 08-25 02:02 → EDBEDREQ 08-25 02:22 → 2E 08-25 04:41 → OBSVTOIN 08-26 09:19 → 4E 08-26 22:35
DX: J44.0 Chronic obstructive pulmonary disease with (acute) lower respiratory infection (principal); J20.9 Acute bronchitis, unspecified; F14.10 Cocaine abuse, uncomplicated; I83.028 Varicose veins of left lower extremity with ulcer other part of lower leg; F17.200 Nicotine dependence, unspecified, uncomplicated; F16.10 Hallucinogen abuse, uncomplicated; I10 Essential (primary) hypertension; E11.9 Type 2 diabetes mellitus without complications; Z88.0 Allergy status to penicillin; Z86.73 Personal history of transient ischemic attack (TIA), and cerebral infarction without residual deficits
CPT/HCPCS: 36415; 71045; 80048; 80053; 80307; 81003; 82550; 82553; 83735; 83880; 84100; 84484; 85007; 85025; 85651; 86140; 87070; 87205; 93005; 93925; 93970; 94640; 94660; 94664; 96365; 96366; 96375; 99284; J7030; J7620